=== PATIENT | female | born 1995 | race Caucasian/White ===

== ENCOUNTER 2020-10-18 07:15 | Outpatient (CLI) | payer OTHER, MEDICAID, BC, SELFPAY ==
--- NOTE | 2020-10-18 07:32 | US_ITS ---
WS: [id number] OBSTETRICAL ULTRASOUND COMPLETE HISTORY: SUPERVISION NORMAL COMPARISON: None available. Single intrauterine gestation in breech presentation. Cervix is Closed and normal length. Cervical length is 4.2 cm. Normal amount of amniotic fluid surrounds the fetus. Placenta: Posterior, no previa or abruption. Placenta grade 1 Heart: 141 BPM. Limited evaluation of the cardiac structures. No good four-chamber heart is been obta ined. The outflow tracts are limited. The axis does appear normal. Anatomy: Intracranial structures and spine are normal. kidneys, stomach and urinary bladd er are unremarkable. There is a tubular structure within the abdomen which may be small bowel. No Dop pler was placed on this area. Abnormal cord insertion site. There is dilatation of the umbilical cord at the insertion site and possible varix. Three-vessel cord is present. 4 extremities are present. profile: Unremarkable. Gender: Male. measurements: BPD = 5.3 cm = 22w0d HC = 19.8 cm = 22w0d AC = 17.2 cm = 22w1d FL = 3.9 cm = 22w4d EFW: 492 g. Biometry is internally concordant. AGA by ultrasound: 22w1d TACHO by ultrasound: 02/20/2021 US/US OB >= 14 weeks fetus [id number] IMPRESSION: 1. Single intrauterine gestation of 22w1d with an TACHO of 02/20/2021. 2. Inadequate evaluation of the heart. There is also an abnormal insert ion site of the umbilical cord. Recommend follow-up with maternal- medicin e for further evaluation of anatomy. Remaining anatomy is negative. Notified Toni Carmen MD at 10/19/2020 8:47 AM.
== END 2020-10-18 07:16 | disposition home or self-care (01) ==
LOC: RAD 07:29
PROVIDERS: PCP Family Medicine; Visit Provider Family Medicine
DX: Z34.92 Encounter for supervision of normal pregnancy, unspecified, second trimester (principal); Z3A.22 22 weeks gestation of pregnancy
CPT/HCPCS: 76805

== ENCOUNTER 2021-01-08 13:53 | Outpatient (CLI) | payer OTHER, BC, SELFPAY ==
--- NOTE | 2021-01-08 14:06 | US_ITS ---
WS: [id number] BIOPHYSICAL PROFILE AMNIOTIC FLUID INDEX HISTORY: GESTATIONAL HYPERTENSION-BOB/BPP COMPARISON: None available. Cardiac activity: 133 bpm. Cervix: closed. Position: Cephalic. Placenta: Posterior, no previa or abruption. Placenta grade: 2 Parameters are as follows: Breathin Movement: 2 Tone: 2 Fluid volume: 2 Amniotic fluid index 16.3 cm. US/US OB BPP wo NST [id number] IMPRESSION: 1. Biophysical profile score: 8/8. 2. Normal amniotic fluid index.
[2021-01-08 14:48] VITALS: RESP 16
[2021-01-08 14:49] VITALS: BP 140/81; PULSE 78
[2021-01-08 14:50] VITALS: TEMP 36.4
[2021-01-08 15:09] VITALS: BP 135/78; PULSE 75
[2021-01-09 05:20] VITALS: TEMP 36.4
[2021-01-09 05:21] VITALS: BP 134/68; PULSE 54
[2021-01-09 06:01] VITALS: BP 118/78; PULSE 53
--- NOTE | 2021-01-09 08:11 | PC.NURSE ---
This account contains the monitor recording of a different Pt. ([id number]). This account was not displayed through [employer] when a different pt was assign to a room, this resulted in the monitor strip being recorded to this account
== END 2021-01-08 20:12 | disposition home or self-care (01) ==
LOC: RAD 13:59 → OBGYN 14:47
PROVIDERS: PCP Family Medicine; Visit Provider Family Medicine
DX: O13.9 Gestational [pregnancy-induced] hypertension without significant proteinuria, unspecified trimester (principal)
CPT/HCPCS: 76819

== ENCOUNTER 2021-01-08 14:44 | Outpatient (CLI) | payer OTHER, BC, SELFPAY ==
[2021-01-08 14:55] VITALS: BMI 36.0
== END 2021-01-08 15:19 | disposition home or self-care (01) ==
LOC: OPOB 14:45
PROVIDERS: PCP Family Medicine; Visit Provider Family Medicine
DX: O16.9 Unspecified maternal hypertension, unspecified trimester (principal); Z3A.00 Weeks of gestation of pregnancy not specified
CPT/HCPCS: 59025

== ENCOUNTER 2021-01-11 07:50 | Outpatient (CLI) | payer OTHER, BC, SELFPAY ==
[2021-01-11 08:04] VITALS: BP 127/79; PULSE 85
[2021-01-11 08:24] VITALS: BP 128/61; PULSE 96
== END 2021-01-11 08:44 | disposition home or self-care (01) ==
LOC: OPOB 07:56 → OBGYN 07:58
PROVIDERS: PCP Family Medicine; Visit Provider Family Medicine
DX: O16.9 Unspecified maternal hypertension, unspecified trimester (principal); Z3A.00 Weeks of gestation of pregnancy not specified
CPT/HCPCS: 59025

== ENCOUNTER 2021-01-14 11:53 | Outpatient (CLI) | payer OTHER, MEDICAID, BC, SELFPAY ==
--- NOTE | 2021-01-14 12:08 | US_ITS ---
WS: [id number] ULTRASOUND OB LIMITED TECHNIQUE: Limited ultrasound examination of the fetus. CLINICAL INFORMATION: GESTATIONAL HYPERTENSION COMPARISON: Ultrasound January 08, 2021 FINDINGS: Cervix measures 5.7 cm. Cervix is long and closed. Ultrasound gestational age 35 weeks 5 days Estimated delivery February 13, 2021 Estimated weight 5 lbs. 15oz. Single interuterine gestation. Placental location is posterior. Placenta grade: 2 heart rate 131 BPM. Normal BOB. BOB 21.45 cm Biophysical profile 8 out of 8. breathin movement: 2 tone: 2 Amniotic fluid: 2 IMPRESSION Normal biophysical profile 8 out of 8
== END 2021-01-14 11:54 | disposition home or self-care (01) ==
LOC: RAD 11:58
PROVIDERS: PCP Family Medicine; Visit Provider Family Medicine
DX: O13.9 Gestational [pregnancy-induced] hypertension without significant proteinuria, unspecified trimester (principal)
CPT/HCPCS: 76816; 76819

== ENCOUNTER 2021-01-14 13:00 | Outpatient (CLI) | payer OTHER, MEDICAID, BC, SELFPAY ==
[2021-01-14 13:00] VITALS: BMI 36.3
[2021-01-14 13:08] VITALS: BP 137/77; PULSE 91; RESP 18; TEMP 36.4
[2021-01-14 13:14] VITALS: RESP 18
[2021-01-14 13:28] VITALS: BP 131/81; PULSE 98
== END 2021-01-14 13:48 | disposition home or self-care (01) ==
LOC: OPOB 13:03 → OBGYN 13:04
PROVIDERS: PCP Family Medicine; Visit Provider Family Medicine
DX: O16.9 Unspecified maternal hypertension, unspecified trimester (principal); Z3A.00 Weeks of gestation of pregnancy not specified
CPT/HCPCS: 59025

== ENCOUNTER 2021-01-17 11:12 | Outpatient (CLI) | payer OTHER, BC, MEDICAID, SELFPAY ==
[2021-01-17 11:19] VITALS: BP 146/80; PULSE 73
[2021-01-17 11:20] VITALS: TEMP 36.1
[2021-01-17 11:28] VITALS: BP 150/107; PULSE 88
[2021-01-17 11:36] VITALS: BMI 36.0
[2021-01-17 11:40] VITALS: BP 144/100; PULSE 90
[2021-01-17 11:56] VITALS: BP 125/76; PULSE 85
== END 2021-01-17 12:15 | disposition home or self-care (01) ==
LOC: OPOB 11:14 → OBGYN 11:16
PROVIDERS: PCP Family Medicine; Visit Provider Family Medicine
DX: O16.9 Unspecified maternal hypertension, unspecified trimester (principal); Z3A.00 Weeks of gestation of pregnancy not specified
CPT/HCPCS: 59025; 99211

== ENCOUNTER 2021-01-21 08:36 | Outpatient (CLI) | payer OTHER, BC, MEDICAID, SELFPAY ==
--- NOTE | 2021-01-21 08:41 | US_ITS ---
WS: [id number] BIOPHYSICAL PROFILE AMNIOTIC FLUID HISTORY: GESTATIONAL DIABETES COMPARISON: 01/14/2021 Cardiac activity: 120 bpm. Cervix: Not visualized. Placenta: Posterior, no previa or abruption. Placenta grade: 2 Parameters are as follows: Breathin Movement: 2 Tone: 2 Fluid volume: 2 Amniotic fluid index: 16.6 cm near the 50th percentile. Largest vertical pocket of amniotic fluid 5 c m. US/US OB F/U w BPP wo NST IMPRESSION: 1. Biophysical profile score: 8/8. 2. Normal amniotic fluid index.
== END 2021-01-21 08:37 | disposition home or self-care (01) ==
LOC: RAD 08:37
PROVIDERS: PCP Family Medicine; Visit Provider Family Medicine
DX: O24.419 Gestational diabetes mellitus in pregnancy, unspecified control (principal)
CPT/HCPCS: 76816; 76819

== ENCOUNTER 2021-01-21 09:14 | Outpatient (CLI) | payer OTHER, BC, MEDICAID, SELFPAY ==
[2021-01-21 09:20] VITALS: BP 126/77; PULSE 91
[2021-01-21 09:30] VITALS: RESP 17
[2021-01-21 09:35] VITALS: BP 116/67; PULSE 101
[2021-01-21 09:38] VITALS: BMI 35.6
== END 2021-01-21 09:55 | disposition home or self-care (01) ==
LOC: OPOB 09:15 → OBGYN 09:16
PROVIDERS: PCP Family Medicine; Visit Provider Family Medicine
DX: O16.9 Unspecified maternal hypertension, unspecified trimester (principal); Z3A.00 Weeks of gestation of pregnancy not specified
CPT/HCPCS: 59025

== ENCOUNTER 2021-01-24 12:15 | Outpatient (CLI) | payer OTHER, BC, MEDICAID, SELFPAY ==
[2021-01-24 12:39] VITALS: BP 137/79; PULSE 86
[2021-01-24 12:40] VITALS: TEMP 36.2
[2021-01-24 12:47] VITALS: BMI 36.0
[2021-01-24 12:54] VITALS: BP 137/82; PULSE 72
--- NOTE | 2021-01-24 12:55 | PC.NURSE ---
Call to Dr. Carmen to report pt here for NST for PIH and Pre-eclampsia. Reported reactive NST and reported VS. Received orders to D/C pt home; have pt stop by the office to shedule an appointment for Thursday to discuss induction of labor.
[2021-01-24 13:12] VITALS: BP 137/82; PULSE 72
[2021-01-25 15:05] LABS: Coronavirus Test Green County Detected
== END 2021-01-24 13:05 | disposition home or self-care (01) ==
LOC: OPOB 12:26 → OBGYN 12:27
PROVIDERS: PCP Family Medicine; Visit Provider Family Medicine
DX: O26.899 Other specified pregnancy related conditions, unspecified trimester (principal); Z3A.00 Weeks of gestation of pregnancy not specified
CPT/HCPCS: 59025; 87635

== ENCOUNTER 2021-01-29 19:49 | Inpatient (IN) | payer OTHER, BC, MEDICAID, SELFPAY ==
[2021-01-29] VITALS (40 sets, daily range): BP systolic 130–150; BP diastolic 69–88; PULSE 77–101; RESP 15–16; O2SAT 93–100; BMI 36.3
[2021-01-29 20:03] LABS: Basophils % 0.3 %; Eosinophils % 0.3 %; Hematocrit 33.7 % (37.0-47.0); Lymphocytes # 2.3 10^3/uL (0.8-4.8); Lymphocytes % 20.5 %; Mean Corpuscular HGB Conc 32.6 g/dL (30.0-36.0); Mean Corpuscular Volume 82.6 fL (81-99); Mean Platelet Volume 11.2 fL (7.4-10.4); Monocytes # 0.7 10^3/uL (0.2-0.9); Neutrophils % 72.4 %; Nucleated Red Blood Cells % 0 %; Platelet Count 234 10^3/cmm (130-400); Red Blood Count 4.08 10^6/uL (4.1-5.3); Red Cell Distribution Width 12.4 % (12.1-15.1)
[2021-01-29] MEDS: labetalol 200 mg Tablet PO (20:19)
[2021-01-29 20:24] LABS: Add Urine Microscopic? YES; Bacteria Urine 3+ /hpf; Bilirubin Urine 1+ (Negative); Blood Urine Trace (Negative); Glucose Urine UA Norm (Normal); Ketones Urine 1+ (Negative); Leukocyte Esterase Urine 1+ (Negative); Nitrate Urine Negative (Negative); Protein Urine Neg (Negative); RBC Urine 0-4 /hpf (0-2); Squamous Epithelial Cell Urine 55-80 /hpf (0-5); Urine Appearance Cloudy (CLEAR); Urine Color Yellow (Yellow); Urobilinogen Urine 1 mg/dL (Negative); WBC Urine 25-40 /hpf (0-5); pH Urine 5 (5-7)
[2021-01-29 20:30] LABS: Alanine Aminotransferase 17 U/L (0-33); Albumin Level 3.6 g/dL (3.5-5.2); Alkaline Phosphatase 154 IU/L (35-105); Anion Gap 15.7 (5-19); Aspartate Amino Transferase 17 U/L (0-32); Blood Urea Nitrogen 8 mg/dL (6-20); Calcium 8.4 mg/dL (8.5-10.5); Carbon Dioxide 21 mmol/L (22-29); Chloride 103 mmol/L (98-107); Globulin 2.9 g/dL (1.3-4.6); Glomerular Filtration Rate 152.9 mL/min (90-130); Glucose 110 mg/dL (65-115); Osmolality Calculated 281 mOsm/kg (285-295); Potassium 3.7 mmol/L (3.5-5.1); Sodium 136 mmol/L (136-145); Total Bilirubin 0.4 mg/dL (0.15-1.2); Total Protein 6.5 g/dL (6.6-8.7); Uric Acid 5.8 mg/dL (2.4-5.7)
[2021-01-29] MEDS: miSOPROStol 100 mcg tablet 25 MCG VAGINAL (20:34)
[2021-01-29 20:36] LABS: Urine Creatinine 216 mg/dL (28-217)
[2021-01-29 20:44] LABS: Urine Protein Random 22 mg/dL
[2021-01-29] MEDS: lactated ringers 1,000 ML 999 ML IV (21:19)
--- NOTE | 2021-01-29 21:59 | PC.NURSE ---
Fluid bolus complete and O2 removed.
--- NOTE | 2021-01-29 22:34 | PC.NURSE ---
Dr. Carmen called unit, states that he has been reviewing the FHTs, MD orders not to give anymore Cytotec and to start pitocin at the 4 hour georgette, Pitocin to start at 2mu/min and increase by 2mu every 30 minutes, MD does not need to be called prior to Pitocin being started.
[2021-01-30] VITALS (73 sets, daily range): BP systolic 125–191; BP diastolic 60–97; PULSE 65–99; TEMP 36.1–36.7; O2SAT 94–98
[2021-01-30] MEDS: dextrose 5%-lactated ringers 1,000 ML 125 ML IV ×3 (00:50→19:42)
[2021-01-30] MEDS: oxytocin 30 UNIT/500 ML BAG IV (00:51)
--- NOTE | 2021-01-30 01:32 | PC.NURSE ---
Patients mother is support system.
--- NOTE | 2021-01-30 01:55 | PC.NURSE ---
2327 - This RN with under radiant warmer in room. DeLee suctioning was performed with a return of 18ml of clear fluid 2329 - Dr. Yeh and RN at warmer with 2333 - MD orders for blow by to be started 2333 - Cpap initiated 2343 - Respiratory called o set up CPAP in nursery and MD orders for to be transferred to nursery 2351 -Infant in nursery under radiant warmer, RN and Respiratory at bedside. CPAP placed with PEEP of 4 and FiO2 of 60% 2355 - FiO2 down to 55%, O2 saturation of 99% 235 - O2 saturation 100, FiO2 down to 50% 0001 - O2 saturation 98%, FiO2 down to 45% 0006 - O2 saturation 99%, FiO2 down to 40% 0008 - O2 Saturation 98%, FiO2 down to 35% 0020 - XRay at bedside. 0022 - Report given to Elgin Pink RN. Care relinquished at this time.
[2021-01-30] MEDS: alum-mag-hydroxide-sime 30 mL UDC PO (04:03)
--- NOTE | 2021-01-30 06:41 | PC.NURSE ---
patient states that she would like to sleep so bedside report is not needed this morning.
--- NOTE | 2021-01-30 08:31 | PM.HP ---
Providers/Chief Complaint Admitting Physician: Toni Carmen MD Primary Care Provider: Toni Carmen MD Chief Complaint: INDUCTION History of Present Illness Michelle Foreman is a 25 year old G2, P0 at 37.1 weeks gestation by LMP consistent with 8-week ultrasound. Her is complicated by smoking for trimester quit at 10 weeks, THC in early now quit, transfer of care at 21 weeks gestation after removing, low measles titer, gestational hypertension starting at 30 weeks on labetalol 200 mg twice daily, preeclampsia without severe features at 36 weeks gestation. The patient presented to labor and delivery on 01/29/2021 for induction of labor secondary to preeclampsia without severe features. The patient had a 24-hour urine protein of 299 at 36 weeks gestation. Her 24 urine protein had been gradually trending upwards over the last month. Because of having preeclampsia but without severe features we waited for delivery until 37 weeks gestation. Currently the patient denies any headaches, flashes of light, nausea, vomiting, chest pains, shortness of breath, vomiting, diarrhea, dysuria, leakage of fluid, vaginal bleeding. The patient did have a headache with nasal congestion and body aches starting on 01/15/2021. She had a Covid swab that was positive on 01/24/2021. She no longer has any symptoms of this. It is felt that she is past the 14 days quarantine. Medications/Allergies Home Medications Medication Instructions Recorded Confirmed Last Taken Type cimetidine 400 mg PO BID 01/11/21 01/24/21 01/24/21 06:30 History labetalol 200 mg PO BID 01/11/21 01/24/21 01/24/21 06:30 History [id number] 1 tab PO DAILY 01/11/21 01/24/21 01/24/21 06:30 History [] Allergies Allergy/AdvReac Type Severity Reaction Status Date / Time No Known Allergies Allergy Verified 01/24/21 13:10 PFSH Acute PFSH: Surgical History (Updated 01/30/21 @ 08:36 by Toni Carmen MD) H/O hand surgery Social History (Updated 01/30/21 @ 08:37 by Toni Carmen MD) Smoking and tobacco status: former smoker Quit status (tobacco): has quit using tobacco Alcohol intake: never Substance/Drug Use: former Date of last use: Quit during early using THC Female Reproductive History: : 2 Vitals/I&O/Wt Last Vital Signs Pulse 75 01/30/21 08:24 Resp 16 01/29/21 20:17 BP 130/73 01/30/21 08:24 Pulse Ox 98 01/30/21 00:46 01/29/21 01/30/21 01/30/21 22:59 06:59 14:59 Intake Total 1000 / 1000 26.499 / 1026.499 Balance 1000 / 1000 26.499 / 1026.499 Weight last 48 hrs Weight 232 lb Physical Exam Narrative: EXAM NARRATIVE: General: Alert and oriented x3 Eyes: Pupils equal round and reactive to light and accommodation Mouth: Mucous membranes moist, pharynx non-erythematous Cardiac: Regular rate and rhythm without murmurs Lungs: Clear to auscultation bilaterally without wheezes, crackles or rhonchi Abdomen: Soft, non-tender, fundus consistent with gestational age Extremities: Trace edema in the bilateral lower extremities. Brisk reflexes in the bilateral deep tendon reflexes of the knee Data : 01/29/21 19:11 01/29/21 19:11 A&P Additional A&P Information The patient was given 1 dose of Cytotec overnight for induction of labor. The patient had a few repetitive late decelerations that resolved with repositioning and an IV fluid bolus. After the Cytotec wore off, it was felt best to not place another dose. For this reason Pitocin was started and the patient is currently pamela every 2 to 3 minutes with 6 units of IV Pitocin. Her cervical exam is 1.5 to 2 cm/50%/-3. Blood pressures have been in the 120s to 150s. There was one in the 160s overnight that self resolved. The patient has been taking labetalol 200 mg twice a day for what was previously gestational hypertension. She was given 1 dose overnight and if her blood pressures are starting to climb again, we will need to give another dose by mouth to help keep her blood pressures under control. We will plan on starting IV magnesium once the patient is in active labor. She will need to be on IV magnesium for 24 hours after delivery as well. All questions were answered. The patient and her mother are in agreement with the current plan of care. Attestations Medical Necessity Statement*: The patient will be here for greater than 2 midnights due to treatment of preeclampsia and routine intrapartum and management of labor and delivery Coding Level of Care Code Acute Brand Sales Manager for [employer] Tushar
--- NOTE | 2021-01-30 15:59 | PM.MISC ---
Miscellaneous Note Note: The patient is doing well at this time and blood pressures have been well controlled. She is pamela every 2 to 3 minutes however not making significant change. She is still 1 to 2 cm with 50% effacement and -3 station. For this reason the IV Pitocin was stopped and the patient was allowed to eat. A Dobbs bulb was placed to help with manual dilation. The patient did not have any complications and tolerated this well. Once this is out, we will plan for starting Pitocin back again. The patient is feeling well. The patient is in agreement with the current plan of care.
--- NOTE | 2021-01-30 16:06 | PC.NURSE ---
1554 Cook's cervical ripening balloon successfully placed by Dr Carmen with 60ml of sterile water placed in each balloon by Ivan Cash RN.
[2021-01-31] VITALS (170 sets, daily range): BP systolic 121–187; BP diastolic 62–122; PULSE 63–108; TEMP 36.3–36.7; O2SAT 96–100
[2021-01-31] MEDS: dextrose 5%-lactated ringers 1,000 ML 125 ML IV ×2 (03:25→16:40)
[2021-01-31] MEDS: alum-mag-hydroxide-sime 30 mL UDC PO ×2 (04:01→11:33)
--- NOTE | 2021-01-31 07:56 | PM.PN ---
Subjective Subjective: Interval history: The patient is feeling well at this time. She is feeling the contractions but they are not too painful yet. She denies any headaches and nausea. She has had some intermittent late decelerations that were improved with a fluid bolus, position change and decreasing Pitocin from 18 to 9. Vitals/I&O/Wt Last Vital Signs Temp 97.9 F 01/31/21 02:00 Pulse 82 01/31/21 07:45 Resp 16 01/29/21 20:17 BP 128/74 01/31/21 07:45 Pulse Ox 98 01/31/21 07:15 01/30/21 01/31/21 01/31/21 22:59 06:59 14:59 Intake Total 1027.333 / 2090.199 1091.150 / 3181.349 Balance 1027.333 / 2090.199 1091.150 / 3181.349 Weight last 48 hrs Weight 232 lb Physical Exam Narrative: EXAM NARRATIVE: General: Alert and oriented x3 Cardiac: Regular rate and rhythm without murmurs Lungs: Clear to auscultation bilaterally without wheezes, crackles or rhonchi Abdomen: Soft, non-tender, fundus consistent with gestational age Extremities: Trace edema in the bilateral lower extremities. Brisk reflexes in the bilateral deep tendon reflexes of the knee Data : 01/29/21 19:11 01/29/21 19:11 A&P Additional A&P Information The patient has made slow change and is currently 5 to 6 cm dilated. She is about 50% effaced. The head was well applied. Because her progress is slow, we discussed AROM and the patient was in favor of this. AROM was carried out approximately 15 minutes ago with clear fluid. No prolapsed cord was noted afterwards. heart tones are currently in the mid one forties with moderate variability and good accelerations. Category 1 tracing. The patient is pamela every 3 to 5 minutes. She is currently on 9 units of Pitocin. We will continue with labor process and watch for signs of complications due to preeclampsia. Currently her blood pressures are all out of the severe range. All questions were answered. The patient is in agreement with the current plan of care. Attestations Medical Necessity Statement*: The patient continues need inpatient care as we continue the process of induction of labor. Her stay will continue to cross 2 midnights. Coding Level of Care Code Acute Mechanical Design Technician for Jeffry Finley
--- NOTE | 2021-01-31 08:54 | PC.NURSE ---
Pt reports increased pain and requesting epidural.
[2021-01-31] MEDS: lactated ringers 1,000 ML 999 ML IV ×2 (08:57→10:12)
--- NOTE | 2021-01-31 10:25 | P.ANESASSM_ITS ---
Pre-Anesthetic Assessment Pre-Anesthetic Assessment: Height/Weight: Height 1.7 m Weight 105.233 kg Temp Pulse Resp BP Pulse Ox 98.1 F 71 16 162/101 98 01/31/21 09:01 01/31/21 10:21 01/29/21 20:17 01/31/21 10:21 01/31/21 10:04 Was Beta Kellie taken within 24 hours: N/A Was Clonidine taken within 24 hours: N/A Social: Social History: No alcohol and No tobacco Exam: Pre-Anes Outpt Exam: alert, oriented x 3, clear to auscultation bilaterally and regular rate & rhythm Airway: Submandibular: WNL Cervical ROM: WNL MP: 2 Dentition: Full Metabolic: Metabolic: Morbid obesity Anesthetic Plan: ASA status: 2 Anesthesia: Regional (specify below) (Labor epidural) Risk of > 500 ml blood loss (7ml/kg in children): No Meds/Allergies Current Medications: Current Medications Generic Name Dose Route Start Last Admin Trade Name Freq PRN Reason Stop Dose Admin Al Hydrox/Mg [place] x/Simethicone 30 ml 01/29/21 19:48 01/31/21 04:01 Jejk-Sis-Pcjanft de-Jarret 30 Ml Udc PO 30 ml Q4H PRN Administration INDIGESTION Lactated Ringer's 1,000 mls @ 999 m ls/hr 01/29/21 19:48 01/31/21 08:57 Lactated Ringers IV 999 mls/hr .Q1H1M PRN Administration See label comment s Dextrose/Lactated Ringer's 1,000 mls @ 125 m ls/hr 01/29/21 19:48 01/31/21 03:25 Dextrose 5%-Lact ated Ringers IV 125 mls/hr .Q8H PRN Administration LABOR INDUCTION Lactated Ringer's 1,000 mls @ 999 m ls/hr 01/29/21 19:48 01/31/21 10:12 Lactated Ringers IV 999 mls/hr .Q1H1M PRN Administration Per L&D Rescitati on Protocol Oxytocin 30 unit in 500 ml s @ 2 mls/hr 01/30/21 00:40 01/31/21 06:26 Pitocin IV 9 milliunit/min .Q24H PRN 9 mls/hr LABOR INDUCTION Titration Protocol 2 MILLIUNIT/MIN Labetalol HCl 200 mg 01/29/21 20:00 01/29/21 20:19 Labetalol 200 Mg Tablet PO 200 mg ONCE MYRTLE Administration PFSH Anesthesia PFSH: Surgical History (Updated 01/30/21 @ 08:36 by Toni Carmen MD) H/O hand surgery Social History (Updated 01/30/21 @ 08:37 by Toni Carmen MD) Smoking and tobacco status: former smoker Quit status (tobacco): has quit using tobacco Alcohol intake: never Substance/Drug Use: former Date of last use: Quit during early using THC Female Reproductive History: : 2 Data Anesthesia CBC & Chem 7: 01/29/21 19:11 01/29/21 19:11 Other Labs: Laboratory Results - last 48 hr 01/29/21 01/29/21 01/29/21 19:11 19:11 20:08 WBC 11.0 H RBC 4.08 L Hgb 11.0 L Hct 33.7 L MCV 82.6 MCH 27.0 L MCHC 32.6 RDW 12.4 Plt Count 234 MPV 11.2 H Neut % (Auto) 72.4 Lymph % (Auto) 20.5 [place] % (Auto) 6.0 Eos % (Auto) 0.3 Baso % (Auto) 0.3 Neut # (Auto) 8.00 H Lymph # (Auto) 2.3 [place] # (Auto) 0.7 Eos # (Auto) 0.0 Baso # (Auto) 0.0 Nucleated RBC % (auto) 0 Nucleated RBCs # 0.0 Sodium 136 Potassium 3.7 Chloride 103 Carbon Dioxide 21 L Anion Gap 15.7 BUN 8 Creatinine 0.5 GFR Calculation 152.9 H Glucose 110 Calculated Osmolality 281 L Uric Acid 5.8 H Calcium 8.4 L Total Bilirubin 0.4 AST 17 ALT 17 Alkaline Phosphatase 154 H Total Protein 6.5 L Albumin 3.6 Globulin 2.9 Urine Color Yellow Urine Appearance Cloudy Urine pH 5 Ur Specific [place] 1.020 Urine Protein Neg Urine Glucose (UA) Norm Urine Ketones 1+ H Urine Blood Trace H Urine Nitrate Negative Urine Bilirubin 1+ H Urine Urobilinogen 1 H Ur Leukocyte Esterase 1+ H Urine RBC 0-4 H Urine WBC 25-40 H Ur Squamous Epith Cells 55-80 H Amorphous Sediment Not Reportable Urine Bacteria 3+ H U Random Total Protein Urine Creatinine Protein/Creatinin Ratio 01/29/21 20:08 WBC RBC Hgb Hct MCV MCH MCHC RDW Plt Count MPV Neut % (Auto) Lymph % (Auto) [place] % (Auto) Eos % (Auto) Baso % (Auto) Neut # (Auto) Lymph # (Auto) [place] # (Auto) Eos # (Auto) Baso # (Auto) Nucleated RBC % (auto) Nucleated RBCs # Sodium Potassium Chloride Carbon Dioxide Anion Gap BUN Creatinine GFR Calculation Glucose Calculated Osmolality Uric Acid Calcium Total Bilirubin AST ALT Alkaline Phosphatase Total Protein Albumin Globulin Urine Color Urine Appearance Urine pH Ur Specific [place] Urine Protein Urine Glucose (UA) Urine Ketones Urine Blood Urine Nitrate Urine Bilirubin Urine Urobilinogen Ur Leukocyte Esterase Urine RBC Urine WBC Ur Squamous Epith Cells Amorphous Sediment Urine Bacteria U Random Total Protein 22 Urine Creatinine 216 Protein/Creatinin Ratio 0.10 Cardiac Studies: No Data to Display
--- NOTE | 2021-01-31 10:26 | ANES.PROC ---
Anesthesia Procedures Procedure/Date: 01/31/21 Epidural: Time Out Performed: Yes Consents Signed: Procedure Consent Consent: requested by attending/covering physician, from patient, risks and benefits reviewed and patient agrees to proceed Lumbar Level: L2-L3 Epidural position: sitting Epidural procedure: sterile prep of area, 1% lidocaine to numb the area, 18 g needle, neg for paresthesia, test dose given, 1.5% xylocaine 1:200k epi, placed PCEA, no systemic response, sterile dressing applied, L.U.D. no apparent complications and 0.2% Ropiavacaine @ mls/hr (13) Additional Comments: ROB at 6cm, cath at 11cm. Bolused 5mls 2% PF lido
[2021-01-31] MEDS: labetalol 5 mg/mL SDV 20mL 20 MG IVP (10:27)
[2021-01-31] MEDS: labetalol 5 mg/mL SDV 20mL 40 MG IVP (10:42)
[2021-01-31] MEDS: magnesium sulfate premix 4 GM/100 ML PREMIX IV (11:08)
[2021-01-31] MEDS: labetalol 5 mg/mL SDV 20mL 80 MG IVP ×2 (11:32→12:04)
[2021-01-31] MEDS: magnesium sulfate premix 20 GM/500 ML BAG IV ×2 (11:42→21:12)
[2021-01-31] MEDS: ondansetron 2 mg/ML SDV 2 mL 4 MG IVP (12:09)
[2021-01-31] MEDS: labetalol 200 mg Tablet PO (12:15)
[2021-01-31 13:20] LABS: Magnesium Level (OB Only) 3.7 mg/dL (5.0-7.5)
[2021-01-31] MEDS: acetaminophen 325 mg Tablet 650 MG PO (16:18)
[2021-01-31] MEDS: oxytocin 30 UNIT/500 ML BAG 600 UNIT IV (18:07)
--- NOTE | 2021-01-31 18:15 | PM.DELIVERY ---
Delivery Note: Date of delivery: January 31, 2021 Pre-delivery diagnoses: 1. Intrauterine at 37.2 weeks gestation 2. Preeclampsia with severe features 3. Transfer of care at 21 weeks gestation 4. Low measles titer 5. Smoking during first trimester quit at 10 weeks 6. THC use in early and now quit Post-delivery diagnoses: 1. Intrauterine status post spontaneous vaginal delivery at 37.2 weeks gestation 2. Preeclampsia with severe features on magnesium 3. Transfer of care at 21 weeks gestation 4. Low measles titer 5. Smoking during first trimester quit at 10 weeks 6. THC use in early and now quit 7. Delivery of healthy infant male weighing 7 pounds 8 ounces with Apgars of 7 and 9 Procedure: Spontaneous vaginal delivery Delivering Physician: Toni Carmen MD Estimated blood loss (mL): 100 Findings: 1. Intact placenta with central umbilical insertion site 2. Delivery of healthy infant male weighing 7 pounds 8 ounces with Apgars of 7 and 9 Michelle Foreman is a 25 year old G2 now P1 status post spontaneous vaginal delivery at 37.1 weeks gestation by LMP consistent with 8-week ultrasound. Her is complicated by smoking for trimester quit at 10 weeks, THC in early now quit, transfer of care at 21 weeks gestation after removing, low measles titer, gestational hypertension starting at 30 weeks on labetalol 200 mg twice daily, preeclampsia without severe features at 36 weeks gestation and now with severe preeclampsia. Pre-Delivery Course: The patient presented to labor and delivery for induction of labor secondary to preeclampsia. She was 1 cm dilated upon presentation and was given Cytotec x1. The patient had some intermittent late decelerations secondary to this. They resolved with fluid boluses and repositioning, however I felt that it was unsafe to give further doses. She did not make significant change. She was started on IV Pitocin. She only changed to 1.5 cm dilation. Because of this a Dobbs bulb was placed and it came out after a few hours. At that time she was 4 cm dilated. The patient was restarted on IV Pitocin and made slow change. By the morning of 01/31/2021, the head was applied to the cervix and AROM was performed at 7:49 AM on 01/31/2021 to augment labor. She was 5 cm at that time. The patient was started on IV magnesium and given an laboring epidural. The patient then began to make slow but gradual change. At 1711 the patient had a small anterior lip and she was able to push past it. She was considered complete at 1712 on 01/31/2021. Delivery: The patient began pushing at 1711 on 01/31/2021. The patient pushed very well and after 3 contractions of pushing the 's head delivered in the OA position at 1722 on 01/31/2021. The left shoulder was the anterior shoulder and it delivered with ease. Rest the infant delivered without complication. The 's mouth and nose were bulb suctioned by myself. The was placed on the mother's chest where the nurses were waiting to care for him. The cord was clamped by myself after approximately 1 minute and cut by the mother. The cord blood was then obtained. The cord was then drained of blood. Traction was placed on the umbilical cord and the uterus was massaged. The placenta delivered at 1742 without complication. The placenta was noted to be intact with a central umbilical cord insertion site. The cervix was inspected and no lacerations were noted. Vaginal wall was inspected and a second-degree midline perineal laceration was noted. This did not extend to the rectum. Adequate anesthesia was noted due to the epidural. 3-0 Vicryl was used to repair the laceration. A rectal exam was done and no sutures were noted in the rectal vault. Currently both the mother and infant are doing well. Coding Level of Care Code Acute Heating And Cooling Technician for Jeffry Finley
[2021-01-31 19:58] LABS: Magnesium Level (OB Only) 4.9 mg/dL (5.0-7.5)
[2021-01-31] MEDS: ibuprofen 800 mg tablet PO (21:12)
[2021-02-01] VITALS (35 sets, daily range): BP systolic 108–162; BP diastolic 56–107; PULSE 74–93; RESP 16–18; TEMP 36.7; O2SAT 97
[2021-02-01 01:35] LABS: Magnesium Level (OB Only) 5.5 mg/dL (5.0-7.5)
[2021-02-01] MEDS: alum-mag-hydroxide-sime 30 mL UDC PO (02:57)
[2021-02-01] MEDS: acetaminophen 325 mg Tablet 650 MG PO (03:35)
[2021-02-01 07:19] LABS: Magnesium Level (OB Only) 6.1 mg/dL (5.0-7.5)
[2021-02-01] MEDS: magnesium sulfate premix 20 GM/500 ML BAG IV (07:32)
[2021-02-01] MEDS: ibuprofen 800 mg tablet PO ×3 (08:32→21:03)
[2021-02-01] MEDS: dextrose 5%-lactated ringers 1,000 ML 75 ML IV (08:32)
[2021-02-01] MEDS: docusate sodium 100 mg Capsule PO ×2 (08:32→17:57)
[2021-02-01] MEDS: prenatal vitamin Capsule 1 CAP PO (08:32)
[2021-02-01] MEDS: labetalol 200 mg Tablet PO ×3 (09:02→17:57)
--- NOTE | 2021-02-01 15:10 | P.PN_ITS ---
Subjective Subjective: Interval history: Patient is feeling well today. She does feel tired and groggy with a headache that is likely related to the magnesium. Otherwise her pain is well controlled. Her bleeding is decreasing well. She is breast-feeding well. Vitals/I&O/Wt Last Vital Signs Temp 97.4 F L 01/31/21 15:15 Pulse 82 02/01/21 14:05 Resp 16 01/29/21 20:17 BP 140/92 02/01/21 14:05 Pulse Ox 97 02/01/21 10:32 02/01/21 02/01/21 02/01/21 06:59 14:59 22:59 Intake Total 683.333 / 5045.683 1387.917 / 1387.917 Output Total 2430 / 3331 1999 Balance -1746.667 / 1714.683 -612.083 / -612.083 Physical Exam Narrative: EXAM NARRATIVE: General: Alert and oriented x3 Cardiac: Regular rate and rhythm without murmurs Lungs: Clear to auscultation bilaterally without wheezes, crackles or rhonchi Abdomen: Soft, minimal tenderness, fundus is firm and 1 cm below the umbilicus. Extremities: Trace edema in the bilateral lower extremities. Brisk reflexes in the bilateral deep tendon reflexes of the knees. Urinary Catheter Management^: Dobbs Latex Free: Cath Placed During This Visit: yes Reason for Continuing Indwelling Catheter: Accurate Measurement of Urinary Output in Critically Ill Patients Urinary Catheter Date of Insertion: 01/31/21 Urinary Catheter Time of Insertion: 18:15 Data : 01/29/21 19:11 01/29/21 19:11 A&P Additional A&P Information Overall patient is doing well. Her blood pressures are decreasing, however continue to be elevated. We will start her back on labetalol 200 mg by mouth twice a day. We will continue with this and will likely have to gradually wean it off as an outpatient. The patient continues to have brisk reflexes. We will need to watch closely for signs of preeclampsia persisting. She does have good urine output which indicates that her preeclampsia is improving. Will likely be able to stop the IV magnesium at 24 hours, however I did discuss with the p atient that she needs to have minimal activity overall as it may take a number of weeks for her to improve completely from preeclampsia. The patient expressed understanding. Currently her pain is well controlled. Her bleeding is decreasing well. We will plan to keep the patient at least until tomorrow evening and the on that we will decide based on her overall course. All questions were answered. The patient is in agreement with the current plan of care. Attestations Medical Necessity Statement*: The patient will be here for greater than 2 midnights due to treatment of preeclampsia and routine care. Coding Level of Care Code Acute Environmental Coordinator for Jeffry Finley
[2021-02-01 15:11] LABS: Hematocrit 26.8 % (37.0-47.0); Hemoglobin 8.7 g/dL (11.5-15.3); Mean Corpuscular HGB Conc 32.5 g/dL (30.0-36.0); Mean Corpuscular Hemoglobin 27.7 pg (28.0-34.0); Mean Corpuscular Volume 85.4 fL (81-99); Mean Platelet Volume 11.2 fL (7.4-10.4); Platelet Count 187 10^3/cmm (130-400); Red Blood Count 3.14 10^6/uL (4.1-5.3); Red Cell Distribution Width 13.2 % (12.1-15.1); White Blood Count 10.6 10^3/uL (4.0-10.0)
[2021-02-01 15:32] LABS: Magnesium Level (OB Only) 5.9 mg/dL (5.0-7.5)
--- NOTE | 2021-02-01 19:24 | PC.NURSE ---
Patient assisted to bathroom. Full linen change performed. Kelly care performed. Patient tolerated ambulating well. Patient assisted to chair and given call light and instructed to not get up without assistance.
[2021-02-01] MEDS: lanolin oint 7 gm 1 APPLIC TOPICAL (21:38)
[2021-02-01] MEDS: benzocaine-menthol 78 gm Canister 1 SPRAY TOPICAL (21:38)
[2021-02-02] VITALS (7 sets, daily range): BP systolic 124–146; BP diastolic 60–86; PULSE 75–80; RESP 16–18; TEMP 36.9; O2SAT 99
[2021-02-02] MEDS: labetalol 200 mg Tablet PO ×2 (10:00→17:02)
[2021-02-02] MEDS: docusate sodium 100 mg Capsule PO ×2 (10:00→17:02)
[2021-02-02] MEDS: ibuprofen 800 mg tablet PO ×2 (10:00→16:06)
[2021-02-02] MEDS: prenatal vitamin Capsule 1 CAP PO (10:00)
--- NOTE | 2021-02-02 11:36 | PM.DCS ---
Discharge Providers Date of Admission: 01/29/21 19:49 Date of Discharge: February 02, 2021 Attending Provider at Admission: Toni Carmen MD Attending Provider at Discharge: Toni Carmen MD Primary Care Provider: Toni Carmen MD Diagnoses at Discharge Other Information Additional DC diagnoses/information: 1. Intrauterine status post spontaneous vaginal delivery at 37.2 weeks gestation 2. Preeclampsia with severe features on magnesium 3. Transfer of care at 21 weeks gestation 4. Low measles titer 5. Smoking during first trimester quit at 10 weeks 6. THC use in early and now quit 7. Delivery of healthy male weighing 7 pounds 8 ounces with Apgars of 7 and 9 Reason for Visit Reason for Visit: INDUCTION Hospital Course Hospital Course Michelle Foreman is a 25 year old G2 now P1 status post spontaneous vaginal delivery at 37.1 weeks gestation by LMP consistent with 8-week ultrasound. Her is complicated by smoking for trimester quit at 10 weeks, THC in early now quit, transfer of care at 21 weeks gestation after removing, low measles titer, gestational hypertension starting at 30 weeks on labetalol 200 mg twice daily, preeclampsia without severe features at 36 weeks gestation and now with severe preeclampsia. Pre-Delivery Course: The patient presented to labor and delivery for induction of labor secondary to preeclampsia. She was 1 cm dilated upon presentation and was given Cytotec x1. The patient had some intermittent late decelerations secondary to this. They resolved with fluid boluses and repositioning, however I felt that it was unsafe to give further doses. She did not make significant change. She was started on IV Pitocin. She only changed to 1.5 cm dilation. Because of this a Dobbs bulb was placed and it came out after a few hours. At that time she was 4 cm dilated. The patient was restarted on IV Pitocin and made slow change. By the morning of 01/31/2021, the head was applied to the cervix and AROM was performed at 7:49 AM on 01/31/2021 to augment labor. She was 5 cm at that time. The patient was started on IV magnesium and given an laboring epidural. The patient then began to make slow but gradual change. At 1711 the patient had a small anterior lip and she was able to push past it. She was considered complete at 1712 on 01/31/2021. Delivery: The patient began pushing at 1711 on 01/31/2021. The patient pushed very well and after 3 contractions of pushing the 's head delivered in the OA position at 1722 on 01/31/2021. The left shoulder was the anterior shoulder and it delivered with ease. Rest the infant delivered without complication. The infant's mouth and nose were bulb suctioned by myself. The infant was placed on the mother's chest where the nurses were waiting to care for him. The cord was clamped by myself after approximately 1 minute and cut by the mother. The cord blood was then obtained. The cord was then drained of blood. Traction was placed on the umbilical cord and the uterus was massaged. The placenta delivered at 1742 without complication. The placenta was noted to be intact with a central umbilical cord insertion site. The cervix was inspected and no lacerations were noted. Vaginal wall was inspected and a second-degree midline perineal laceration was noted. This did not extend to the rectum. Adequate anesthesia was noted due to the epidural. 3-0 Vicryl was used to repair the laceration. A rectal exam was done and no sutures were noted in the rectal vault. : The patient was on IV magnesium for 24 hours . Her blood pressures were severe initially, however have improved. The patient was restarted on labetalol 200 mg twice daily by mouth and her blood pressures have been stable since. The patient is now ambulating, voiding, passing gas and tolerating food by mouth. We had a lengthy discussion regarding precautions for home care after preeclampsia. The patient is in agreement with the current plan of care. We will plan to follow-up in clinic in the next 2 to 3 days. We discussed precautions regarding blood pressure medications. All questions were answered. Physical Exam Narrative: EXAM NARRATIVE: General: Alert and oriented x3 Cardiac: Regular rate and rhythm without murmurs Lungs: Clear to auscultation bilaterally without wheezes, crackles or rhonchi Abdomen: Soft, minimal tenderness, fundus is firm and 1 cm below the umbilicus. Extremities: Trace edema in the bilateral lower extremities. Urinary Catheter Management^: Dobbs Latex Free: Cath Placed During This Visit: yes, but has since been removed by the nurse Reason for Continuing Indwelling Catheter: Decision to DC Catheter Urinary Catheter Date of Insertion: 01/31/21 Urinary Catheter Time of Insertion: 18:15 Date Urinary Catheter Removed: 02/01/21 Time Urinary Catheter Discontinued: 17:35 Discharge Data Data Completed and Pending: Labs from last 24 hours 02/01/21 02/01/21 14:21 14:21 WBC 10.6 H RBC 3.14 L Hgb 8.7 L Hct 26.8 L MCV 85.4 MCH 27.7 L MCHC 32.5 RDW 13.2 Plt Count 187 MPV 11.2 H Magnesium 5.9 Vitals: Last Vital Signs Temp 98.1 F 02/01/21 07:00 Pulse 75 02/02/21 10:02 Resp 18 02/02/21 03:00 BP 137/63 02/02/21 10:02 Pulse Ox 97 02/01/21 10:32 Discharge Plan Discharge Patient Disposition: Home Condition: Stable Prescriptions: New hydrocodone-acetaminophen 5-325 mg Tablet 1 tab PO Q6H PRN (Reason: Moderate To Severe Pain) Qty: 10 RF: 0 ibuprofen 800 mg Tablet 800 mg PO TID Qty: 60 RF: 0 amoxicillin 500 mg capsule 500 mg PO TID 10 Days Qty: 30 RF: 0 ferrous sulfate 325 mg (65 mg iron) tablet 325 mg PO BID 30 Days Qty: 60 RF: 0 Continued cimetidine 400 mg Tablet 400 mg PO BID RF: 0 1 mg Tablet 1 tab PO DAILY RF: 0 labetalol 100 mg Tablet 200 mg PO BID Qty: 120 RF: 0 Discharge Orders: Discharge Order (Routine); Ordered 02/02/21 Ordered By: Toni Carmen Referrals: Toni Carmen MD [Primary Care Provider] - 03/15/21 10:00 am (Your 6 week post- appointment is scheduled for 03/15/2021 at 10:00am with Dr. Carmen. Please also schedule a follow up appointment to see Dr Carmen on 02/04/21. ) Discharge Diet: Regular Discharge Activity: Limit activity as instructed Patient Instructions: Vitamins (By mouth), Pre-eclampsia and Eclampsia (DC), OB Discharge Report, OB Food/Drug Interaction Guide, Opioid Safety, OB Home Care, OB Your Care - [facility], OB Proud Parent Packet, OB Vaginal Deliveries, Abnormal Bleeding Activity Restrictions/Additional Instructions: Please limit activity for the first few days. Gradually increase as tolerated. Please watch blood pressures closely and let Dr. Carmen know if you are having problems with weaning blood pressure medications as we discussed. Nothing per vagina for 6 weeks. Discharge Attestations Time Spent in Discharge Care*: greater than 30 min Quality Metrics Clinical Quality Measures During this hospital stay, did patient experience: None Coding Level of Care Code Acute [facility] DC note
--- NOTE | 2021-02-02 17:59 | PC.NURSE ---
Prescriptions for amoxicillin, ferrous sulfate, ibuprofen and labetalol called into [facility] in [place], [place] per patient and physician request. Spoke to pharmacy customer care specialist at [facility] and received confirmation that prescriptions would be ready before closing.
== END 2021-02-02 18:29 | disposition home or self-care (01) | DRG 807 ==
PROVIDERS: Admitting Provider Family Medicine; PCP Family Medicine; Visit Provider Family Medicine
DX: O14.04 Mild to moderate pre-eclampsia, complicating childbirth (principal); Z37.0 Single live birth; Z3A.37 37 weeks gestation of pregnancy; O13.4 Gestational [pregnancy-induced] hypertension without significant proteinuria, complicating childbirth; O76 Abnormality in fetal heart rate and rhythm complicating labor and delivery; O70.1 Second degree perineal laceration during delivery; Z87.891 Personal history of nicotine dependence
CPT/HCPCS: 36415; 51702; 59025; 59409; 80053; 81001; 82570; 83735; 84156; 84550; 85025; 85027; 98960; J2405; J2795; J3475; J3490

== ENCOUNTER 2022-03-04 13:40 | Outpatient (CLI) | payer OTHER, BC, SELFPAY ==
[2022-03-04 14:12] LABS: Basophils % 0.2 %; Eosinophils % 0.7 %; Hematocrit 38.4 % (37.0-47.0); Lymphocytes # 1.8 10^3/uL (0.8-4.8); Lymphocytes % 29.3 %; Mean Corpuscular HGB Conc 31.3 g/dL (30.0-36.0); Mean Corpuscular Hemoglobin 24.5 pg (28.0-34.0); Mean Corpuscular Volume 78.4 fl (81-99); Mean Platelet Volume 10.5 fL (7.4-10.4); Monocytes # 0.4 10^3/uL (0.2-0.9); Monocytes % 6.5 %; Neutrophils # 3.81 10^3/uL (1.8-7.7); Nucleated Red Blood Cells % 0 %; Platelet Count 286 10^3/cmm (130-400); Red Cell Distribution Width 15.1 % (12.1-15.1)
[2022-03-04 15:00] LABS: Rubella IgG 47.2 IU/mL (0.0-10.0); Thyroid Stimulating Hormone 1.54 uIU/mL (0.27-4.20)
[2022-03-04 15:38] LABS: Progesterone 11.29 ng/mL
[2022-03-04 16:56] LABS: Hepatitis B Surface AB 4.1 (11.5-1000); Hepatitis B Surface Antigen Non-Reactive (Nonreactive); Hepatitis C Virus Antibody Non-Reactive (Nonreactive)
[2022-03-05 22:19] LABS: Rapid Plasma Reagin Syphilis Nonreactive (Nonreactive)
[2022-03-05 22:27] LABS: HIV 1 & 2 Antibody Non-Reactive (Non-Reactiv); HIV 1 & 2 Antigen Non-Reactive (Non-Reactiv)
== END 2022-03-04 13:41 | disposition home or self-care (01) ==
LOC: LAB 13:43
PROVIDERS: PCP Family Medicine; Visit Provider Family Medicine
DX: Z34.90 Encounter for supervision of normal pregnancy, unspecified, unspecified trimester (principal)
CPT/HCPCS: 84144; 84443; 85025; 86592; 86706; 86762; 86803; 86850; 86900; 87340; 87806

== ENCOUNTER → 2022-03-05 12:08 | Outpatient (BNVA) | payer OTHER, BC, SELFPAY | PROVIDERS: PCP Family Medicine; Visit Provider Family Medicine | DX: Z34.90 Encounter for supervision of normal pregnancy, unspecified, unspecified trimester (principal) | CPT/HCPCS: 80307; 81000; 81025; 84156; 87077; 87086; 87184; 87491; 87591; 87624; 87661; 88175 ==

== ENCOUNTER 2022-04-07 07:11 | Outpatient (CLI) | payer OTHER, BC, SELFPAY ==
--- NOTE | 2022-04-07 07:23 | US_ITS ---
WS: [id number] EARLY OBSTETRICAL ULTRASOUND (<14 WEEKS). HISTORY: DATING COMPARISON: None available. Single intrauterine gestational sac is identified. Cardiac activity at 167 BPM. [place]-rump length eleuterio sures 3.5 cm which corresponds to a gestation of 10w3d. Normal-appearing yolk sac and amnion demonstr ated. Small subchorionic hemorrhage.Cystic area adjacent to the uterus measures 1.2 x 1.2 x 2.1 cm. C onsistent with resolving subchorionic hemorrhage. No free fluid. Normal size ovaries with no mass. Corpus luteum associated with the RIGHT ovary measures 2.0 x 1.7 x 2.1 cm. Cervix is closed measuring 3.2 cm in length. US/US OB <= 14 weeks fetus [id number] IMPRESSION: 1. Single intrauterine gestation of 10 weeks 3 days and EDC of 10/31/2022. 2. Small resolving subchorionic hemorrhage. 3. Normal cardiac activity.
== END 2022-04-07 07:12 | disposition home or self-care (01) ==
PROVIDERS: PCP Family Medicine; Visit Provider Family Medicine
DX: Z34.80 Encounter for supervision of other normal pregnancy, unspecified trimester (principal); Z3A.10 10 weeks gestation of pregnancy
CPT/HCPCS: 76801

== ENCOUNTER → 2022-05-05 09:36 | Outpatient (BNVA) | payer OTHER, BC, SELFPAY | PROVIDERS: PCP Family Medicine; Visit Provider Family Medicine | DX: Z34.80 Encounter for supervision of other normal pregnancy, unspecified trimester (principal); Z3A.00 Weeks of gestation of pregnancy not specified | CPT/HCPCS: 81511 ==

== ENCOUNTER 2022-05-26 12:16 | Emergency (ER) | payer OTHER, SELFPAY ==
[2022-05-26 12:21] VITALS: BP 134/83; PULSE 70; RESP 16; TEMP 36.6; O2SAT 100; BMI 32.1
--- NOTE | 2022-05-26 13:54 | US_ITS ---
WS: [id number] ULTRASOUND OB FOCUSED HISTORY: pain/cramping COMPARISON: 04/07/2022 Single intrauterine gestation in breech position. Cervix is closed measuring 4.0 cm in length. Placen ta is posterior with no previa or abruption. Grade 0. There is a [place] Santana along the anterior [place] rine wall. Normal amniotic fluid. heart rate at 147 BPM. US/US OB limited [id number] IMPRESSION: 1. Posterior placenta with no abruption or previa. 2. [place] Santana along the anterior uterine wall.
[2022-05-26 14:47] LABS: Basophils % 0.1 %; Eosinophils % 0.3 %; Hematocrit 33.1 % (37.0-47.0); Hemoglobin 10.6 g/dL (11.5-15.3); Lymphocytes # 1.6 10^3/uL (0.8-4.8); Lymphocytes % 23.1 %; Mean Corpuscular Hemoglobin 26.4 pg (28.0-34.0); Mean Corpuscular Volume 82.5 fl (81-99); Mean Platelet Volume 10.7 fL (7.4-10.4); Monocytes # 0.4 10^3/uL (0.2-0.9); Monocytes % 6.3 %; Neutrophils # 4.85 10^3/uL (1.8-7.7); Neutrophils % 69.8 %; Nucleated Red Blood Cells % 0 %; Platelet Count 227 10^3/cmm (130-400); Red Blood Count 4.01 10^6/uL (4.1-5.3); Red Cell Distribution Width 15.7 % (12.1-15.1)
[2022-05-26 15:03] LABS: Alanine Aminotransferase 10 U/L (0-33); Alkaline Phosphatase 50 U/L (35-105); Aspartate Amino Transferase 11 U/L (0-32); Blood Urea Nitrogen 4 mg/dL (6-20); Calcium 8.8 mg/dL (8.5-10.5); Carbon Dioxide 24 mmol/L (22-29); Chloride 105 mmol/L (98-107); Globulin 2.6 g/dL (1.3-4.6); Glomerular Filtration Rate 150.3 mL/min (90-130); Glucose 81 mg/dL (65-115); Osmolality Calculated 284 mOsm/kg (285-295); Sodium 139 mmol/L (136-145); Total Bilirubin 0.3 mg/dL (0.15-1.2); Total Protein 6.6 g/dL (6.6-8.7)
--- NOTE | 2022-05-26 15:04 | ED_ITS ---
HPI - General: Chief complaint: OB/Uterine Contractions Stated complaint: Cramps, 18 weeks Time Seen by Provider: 05/26/22 14:24 Source: patient Mode of arrival: ambulatory Limitations: no limitations History of Present Illness: Patient is a nice 27-year-old female at approximately 18 weeks here for lower abdominal cramping that began around 6 AM this morning. She states cramps were intermittent and lasted for a few hours. She states upon arrival to the emergency department cramps have pretty much resolved. She is not complaining of any vaginal discharge or vagi nal bleeding. Patient has received routine OB care through Dr. Carmen and states she has not had any complications with the thus far. Is not complaining of any urinary symptoms. No nausea, vomiting, changes in bowel movements. MD Complaint: other (abdominal cramping) Onset (ago): hour(s) Pain Consistency: intermittent and now resolved Location: pelvis Severity: mild Quality: Cramping Radiation: pelvis Relieving factors: none Exacerbating factors: none Vaginal discharge: none Vaginal bleeding: none Date of Last Menstrual Period: 01/19/22 Patient : Yes OB History - Current : no complications care: followed by OB (Dr. Carmen) Associated symptoms: Reports no associated symptoms; Deny abdominal pain, dysuria, headache(s), malaise, nausea, vaginal discharge or vomiting Review of Systems Const: Denies: fever(s), chills, body aches, fatigue or malaise Card: Denies: chest pain Resp: Denies: dyspnea GI: Denies: abdominal pain, nausea, vomiting or diarrhea : Reports: pelvic pain (cramping-resolved now); Denies: flank pain, difficulty voiding, dysuria, urinary frequency, urinary urgency, urinary hesitancy, vaginal odor, vaginal bleeding or vaginal discharge Musc: Denies: neck pain, back pain, extremity pain or joint pain Skin/Breast: Denies: rash Neuro: Denies: headache(s), numbness in extremities, weakness in extremities, sensory changes, difficulty walking or dizziness PFS ED PFSH: Surgical History H/O hand surgery Social History Smoking and tobacco status: former smoker Quit status (tobacco): has quit using tobacco Alcohol intake: never Female Reproductive History: Date of last menstrual period: 01/19/22 Physical Exam Const: COMMON NORMALS: no acute distress, average body habitus, patient oriented x3, no limitations, healthy appearing, alert and well nourished GENERAL APPEARANCE: cooperative ORIENTATION/CONSCIOUSNESS: Yes awake, Yes oriented to person, Yes oriented to place and Yes oriented to time HENMT: COMMON NORMALS: normocephalic and atraumatic HEAD & SCALP: normal to inspection, normocephalic and atraumatic Resp: COMMON NORMALS: normal respiratory effort and clear to auscultation bilaterally AUSCULTATION: clear to auscultation bilaterally Cardio: COMMON NORMALS: regular rate and regular rhythm RATE: regular rate RHYTHM: regular rhythm GI: COMMON NORMALS: Normal to inspection, nondistended, normoactive bowel sounds present, Soft to palpation, non-tender, No hepatosplenomegaly present and no masses INSPECTION: Yes normal to inspection and Yes gravid abdomen AUSCULTATION: Yes normoactive bowel sounds PALPATION: Yes Soft to palpation and Yes No hepatosplenomegaly present : COMMON NORMALS: Yes no CVA tenderness BLADDER/KIDNEY EXAM: Yes no CVA tenderness Back/Pelvis: COMMON NORMALS: no CVA tenderness, thoracic and lumbar spine normal to inspection, no thoracic nor lumbar tenderness and thoraco-lumbar ROM normal Extremity: COMMON NORMALS: normal to inspection GENERAL: Yes normal exam except as noted Neuro: ABNER COMA SCALE: document GCS findings Abner coma scale eye opening: Spontaneous [place] coma scale verbal response: Orientated [place] coma scale motor response: Obey commands [place] coma scale total score: 15 COMMON NORMALS: patient oriented x3, moves all extremities, no focal motor deficits, no sensory deficits noted and gait normal SENSORIUM/ORIENTATION: Yes alert, Yes oriented to person, Yes oriented to place and Yes oriented to time Skin: COMMON NORMALS: no rashes or lesions noted GENERAL SKIN EXAM: no rashes or lesions noted Course Vital Signs: Vital signs: Vital Signs Temperature 97.8 F 05/26/22 12:21 Pulse Rate 70 05/26/22 12:21 Respiratory Rate 16 05/26/22 12:21 Blood Pressure 134/83 05/26/22 12:21 Pulse Oximetry 100 05/26/22 12:21 MDM - OB/Uterine Contractions Medical Decision Making Patient states she has not had any further cramping since arrival to the ED. She is not having any vaginal discharge, leaking of fluids, vaginal bleeding. OB ultrasound normal. Placenta showing no abruption or previa. They did mention [place] Santana contractions were noted. Vital signs are normal. Blood work overall is fairly unremarkable. She is mildly anemic with a hemoglobin of 10.6. Chemistry panel looks good. UA slightly suspicious for UTI however patient is not complaining of any urinary symptoms. We will go ahead and culture. Recommend her or Dr. Carmen follow-up on this in 48 hours and if growth is present she will need to begin antibiotic therapy at that time. Return to ED precautions given. Lab Data : 05/26/22 14:30 05/26/22 14:30 Radiology Impressions Obstetrics Ultrasound 05/26/22 13:54 IMPRESSION: 1. Posterior placenta with no abruption or previa. 2. [place] Santana along the anterior uterine wall. Laboratory Results WBC 7.0 10^3/uL (4.0-10.0) 05/26/22 14:30 RBC 4.01 10^6/uL (4.1-5.3) L 05/26/22 14:30 Hgb 10.6 g/dL (11.5-15.3) L 05/26/22 14:30 Hct 33.1 % (37.0-47.0) L 05/26/22 14:30 MCV 82.5 fl (81-99) 05/26/22 14:30 MCH 26.4 pg (28.0-34.0) L 05/26/22 14:30 MCHC 32.0 g/dL (30.0-36.0) 05/26/22 14:30 RDW 15.7 % (12.1-15.1) H 05/26/22 14:30 Plt Count 227 10^3/cmm (130-400) 05/26/22 14:30 MPV 10.7 fL (7.4-10.4) H 05/26/22 14:30 Neut % (Auto) 69.8 % 05/26/22 14:30 Lymph % (Auto) 23.1 % 05/26/22 14:30 [place] % (Auto) 6.3 % 05/26/22 14:30 Eos % (Auto) 0.3 % 05/26/22 14:30 Baso % (Auto) 0.1 % 05/26/22 14:30 Neut # (Auto) 4.85 10^3/uL (1.8-7.7) 05/26/22 14:30 Lymph # (Auto) 1.6 10^3/uL (0.8-4.8) 05/26/22 14:30 Murray # (Auto) 0.4 10^3/uL (0.2-0.9) 05/26/22 14:30 Eos # (Auto) 0.0 10^3/uL (0.0-0.8) 05/26/22 14:30 Baso # (Auto) 0.0 10^3/uL (0.0-0.1) 05/26/22 14:30 Nucleated RBC % (auto) 0 % 05/26/22 14:30 Nucleated RBCs # 0.0 /100WBC 05/26/22 14:30 Sodium 139 mmol/L (136-145) 05/26/22 14:30 Potassium 4.0 mmol/L (3.5-5.1) 05/26/22 14:30 Chloride 105 mmol/L (98-107) 05/26/22 14:30 Carbon Dioxide 24 mmol/L (22-29) 05/26/22 14:30 Anion Gap 14.0 (5-19) 05/26/22 14:30 BUN 4 mg/dL (6-20) L 05/26/22 14:30 Creatinine 0.5 mg/dL (0.5-0.9) 05/26/22 14:30 GFR Calculation 150.3 mL/min (90-130) H 05/26/22 14:30 Glucose 81 mg/dL (65-115) 05/26/22 14:30 Calculated Osmolality 284 mOsm/kg (285-295) L 05/26/22 14:30 Calcium 8.8 mg/dL (8.5-10.5) 05/26/22 14:30 Total Bilirubin 0.3 mg/dL (0.15-1.2) 05/26/22 14:30 AST 11 U/L (0-32) 05/26/22 14:30 ALT 10 U/L (0-33) 05/26/22 14:30 Alkaline Phosphatase 50 U/L (35-105) 05/26/22 14:30 Total Protein 6.6 g/dL (6.6-8.7) 05/26/22 14:30 Albumin 4.0 g/dL (3.5-5.2) 05/26/22 14:30 Globulin 2.6 g/dL (1.3-4.6) 05/26/22 14:30 Urine Color Dark yellow (Yellow) 05/26/22 14:48 Urine Appearance Sl hazy (CLEAR) 05/26/22 14:48 Urine pH 7 (5-7) 05/26/22 14:48 Ur Specific [place] 1.015 (1.005-1.030) 05/26/22 14:48 Urine Protein Neg (Negative) 05/26/22 14:48 Urine Glucose (UA) Norm (Normal) 05/26/22 14:48 Urine Ketones 1+ (Negative) H 05/26/22 14:48 Urine Blood Neg (Negative) 05/26/22 14:48 Urine Nitrate Negative (Negative) 05/26/22 14:48 Urine Bilirubin Neg (Negative) 05/26/22 14:48 Urine Urobilinogen 4 mg/dL (Negative) H 05/26/22 14:48 Ur Leukocyte Esterase 1+ (Negative) H 05/26/22 14:48 Urine RBC None /hpf (0-2) 05/26/22 14:48 Urine WBC 10-15 /hpf (0-5) H 05/26/22 14:48 Ur Squamous Epith Cells 5-10 /hpf (0-5) H 05/26/22 14:48 Amorphous Sediment Not Reportable 05/26/22 14:48 Urine Bacteria 2+ /hpf (NONE) H 05/26/22 14:48 Urine Mucus Trace /hpf 05/26/22 14:48 Discharge Plan Discharge Patient Disposition: Home Clinical Impression: Ronaldocynthia Fernandesk's contraction Condition: Stable Prescriptions: No Action Aspir-81 81 mg Tablet,Delayed Release (Dr/Ec) 81 mg PO DAILY labetalol 100 mg tablet 100 mg PO BID Multivitamins 28 mg iron- 800 mcg Tablet 1 tab PO DAILY Discharge Orders: Discharge ED (Routine); Ordered 05/26/22 Ordered By: Nany Oliveros Referrals: Toni Carmen MD [Primary Care Provider] - Activity Restrictions/Additional Instructions: As we discussed your Dr. Carmen needs to follow-up on your urine culture in approximately 48 hours to check for growth. If present you need to begin antibiotics. You need to return to the emergency department for more frequent or severe cramping, vaginal bleeding, discharge, leaking of fluids, lightheadedness/dizziness/passing out episodes, or any other concerns you may have. Otherwise please follow up with Dr. Carmen at your scheduled appointment next week. Coding Level of Care Code ED Latin Dancer for Chg Fwd Exam Comprehensive
[2022-05-26 15:17] LABS: Specific Gravity, Urine 1.015 (1.005-1.030); Urine Appearance SL Hazy (CLEAR); Urine Color Dark Yellow (Yellow); pH Urine 7 (5-7)
[2022-05-26 15:18] LABS: Add Urine Microscopic? YES; Bacteria Urine 2+ /hpf; Bilirubin Urine Neg (Negative); Blood Urine Neg (Negative); Glucose Urine UA Norm (Normal); Ketones Urine 1+ (Negative); Leukocyte Esterase Urine 1+ (Negative); Mucus Urine TRACE /hpf; Nitrate Urine Negative (Negative); Protein Urine Neg (Negative); Urobilinogen Urine 4 mg/dL (Negative)
[2022-05-26 15:19] LABS: Add Urine Culture? Yes
== END 2022-05-26 15:47 | disposition home or self-care (01) ==
PROVIDERS: Emergency Provider Physician Assistant; PCP Family Medicine
DX: O47.02 False labor before 37 completed weeks of gestation, second trimester (principal); Z3A.18 18 weeks gestation of pregnancy; Z87.891 Personal history of nicotine dependence
CPT/HCPCS: 36415; 76815; 80053; 81001; 85025; 87086; 99284

== ENCOUNTER 2022-06-04 06:10 | Outpatient (CLI) | payer OTHER, SELFPAY ==
--- NOTE | 2022-06-04 06:13 | US_ITS ---
WS: [id number] OBSTETRICAL ULTRASOUND COMPLETE HISTORY: Anatomy US COMPARISON: 04/07/2022 and 05/26/2022 Single intrauterine gestation in Cephalic presentation. Cervix is Closed and normal length. Cervical length is 4.5 cm. Normal amount of amniotic fluid surrounds the fetus. Placenta: Posterior, no previa. Placenta grade 1 Heart: 157 BPM. Four chambers are identified. Limited evaluation of the outflow tracts. Anatomy: Intracranial structures and the spine are poorly visualized. kidneys, stomach and urin meneu bladder are unremarkable. Abdominal wall, three-vessel cord and cord insertion site are normal. 4 extremities are present. profile: Poorly visualized. Gender: Male. measurements: BPD = 4.5 cm = 19w4d HC = 16.8 cm = 19w3d AC = 14.5 cm = 19w6d FL = 3.2 cm = 19w6d EFW: 312 g. Biometry is internally concordant. AGA by ultrasound: 19w5d TACHO by ultrasound: 10/24/2022 US/US OB >= 14 weeks fetus [id number] IMPRESSION: 1. Single intrauterine gestation of 19w5d with an TACHO of 10/24/2022. Appropria te growth since the first trimester ultrasound. 2. Limited screening survey of the anatomy. Very poor visualization of the int racranial structures and inaccurate measurement of the head. Limited eval uation of the cardiac outflow tracts and profile. Suggest short-term foll ow-up.
== END 2022-06-04 06:11 | disposition home or self-care (01) ==
LOC: RAD 06:11
PROVIDERS: PCP Family Medicine; Visit Provider Family Medicine
DX: Z34.92 Encounter for supervision of normal pregnancy, unspecified, second trimester (principal); Z3A.19 19 weeks gestation of pregnancy
CPT/HCPCS: 76805

== ENCOUNTER → 2022-06-20 14:55 | Outpatient (BNVA) | payer OTHER, SELFPAY | PROVIDERS: PCP Family Medicine; Visit Provider Family Medicine | DX: Z34.92 Encounter for supervision of normal pregnancy, unspecified, second trimester (principal); Z3A.21 21 weeks gestation of pregnancy | CPT/HCPCS: 76816 ==

== ENCOUNTER → 2022-08-01 08:03 | Outpatient (BNVA) | payer OTHER, SELFPAY | PROVIDERS: PCP Family Medicine; Visit Provider Family Medicine | DX: Z34.80 Encounter for supervision of other normal pregnancy, unspecified trimester (principal); Z3A.00 Weeks of gestation of pregnancy not specified | CPT/HCPCS: 82950 ==

== ENCOUNTER → 2022-08-12 16:17 | Outpatient (BNVA) | payer OTHER, SELFPAY | PROVIDERS: PCP Family Medicine; Visit Provider Family Medicine | DX: J02.9 Acute pharyngitis, unspecified (principal) | CPT/HCPCS: 87071; 87400; 87426; 87880 ==

== ENCOUNTER → 2022-09-01 15:55 | Outpatient (BNVA) | payer OTHER, SELFPAY | PROVIDERS: PCP Family Medicine; Visit Provider Family Medicine | DX: Z51.81 Encounter for therapeutic drug level monitoring (principal); Z34.80 Encounter for supervision of other normal pregnancy, unspecified trimester; I10 Essential (primary) hypertension; Z3A.00 Weeks of gestation of pregnancy not specified | CPT/HCPCS: 80053; 82570; 84156; 84550; 85025 ==

== ENCOUNTER 2022-10-02 13:36 | Outpatient (CLI) | payer OTHER, SELFPAY ==
[2022-10-02] VITALS (9 sets, daily range): BP systolic 110–136; BP diastolic 61–96; PULSE 78–93; RESP 17; BMI 34.9
[2022-10-02 14:53] LABS: Bilirubin Urine Neg (Negative); Blood Urine Neg (Negative); Glucose Urine UA Norm (Normal); Ketones Urine Negative (Negative); Leukocyte Esterase Urine Negative (Negative); Nitrate Urine Negative (Negative); Protein Urine Neg (Negative); Urine Appearance Hazy (CLEAR); Urine Color Yellow (Yellow); Urobilinogen Urine Neg (Negative); pH Urine 6 (5-7)
[2022-10-02 15:02] LABS: Add Urine Culture? No; Amorphous Sediment Urine 3+ /hpf; Bacteria Urine 2+ /hpf; Squamous Epithelial Cell Urine 15-25 /hpf (0-5)
== END 2022-10-02 15:58 | disposition home or self-care (01) ==
LOC: OPOB 13:43 → OBGYN 13:47 → OPOB 13:51
PROVIDERS: PCP Family Medicine; Visit Provider Family Medicine
DX: O26.899 Other specified pregnancy related conditions, unspecified trimester (principal); Z3A.00 Weeks of gestation of pregnancy not specified; R10.2 Pelvic and perineal pain; M54.50 Low back pain, unspecified
CPT/HCPCS: 59025; 81001; 99211

== ENCOUNTER 2022-10-03 12:56 | Outpatient (CLI) | payer OTHER, SELFPAY ==
--- NOTE | 2022-10-03 13:00 | US_ITS ---
WS: [id number] OB ultrasound for biophysical profile, 10/03/2022 Clinical Data: BOB/BPP 37 weeks Comparison: OB ultrasound, 06/20/2022 Findings: There is a single intrauterine in the breech presentation. The heart rate is 124 beat s per minute. The placenta is fundal and posterior. The biophysical profile is 8 of 8 with normal scores for breathing, movement, posture and tone and amniotic fluid volume. US/US OB BPP NST [id number] Impression: 1. Single intrauterine in breech presentation. 2. Biophysical profile 8 of 8. 3. heart rate 124 beats per minute.
== END 2022-10-03 12:57 | disposition home or self-care (01) ==
PROVIDERS: PCP Family Medicine; Visit Provider Family Medicine
DX: Z51.81 Encounter for therapeutic drug level monitoring (principal); O10.913 Unspecified pre-existing hypertension complicating pregnancy, third trimester; Z3A.37 37 weeks gestation of pregnancy; O32.1XX0 Maternal care for breech presentation, not applicable or unspecified
CPT/HCPCS: 76819; 80053; 84550; 85025

== ENCOUNTER 2022-10-10 11:58 | Outpatient (CLI) | payer OTHER, SELFPAY ==
--- NOTE | 2022-10-10 12:15 | US_ITS ---
WS: [id number] BIOPHYSICAL PROFILE AMNIOTIC FLUID HISTORY: BOB/BPP 40 weeks COMPARISON: 10/03/2022 Cardiac activity: 144 bpm. Cervix: closed. Placenta: Posterior, no previa or abruption. Placenta grade: 1 Parameters are as follows: Breathin Movement: 2 Tone: 2 Fluid volume: 2 Amniotic fluid index: 11.1 cm. Deep single vertical pocket 5.2 cm. US/US OB limited [id number] IMPRESSION: 1. Biophysical profile score: 8/8. 2. Normal amniotic fluid index is 11.1 cm.
== END 2022-10-10 11:59 | disposition home or self-care (01) ==
LOC: RAD 12:04
PROVIDERS: PCP Family Medicine; Visit Provider Family Medicine
DX: O16.9 Unspecified maternal hypertension, unspecified trimester (principal)
CPT/HCPCS: 76815

== ENCOUNTER 2022-10-10 12:43 | Outpatient (CLI) | payer OTHER, SELFPAY ==
[2022-10-10 12:43] VITALS: BMI 34.4
[2022-10-10 12:54] VITALS: BP 123/59; PULSE 86
[2022-10-10 13:11] VITALS: BP 120/58; PULSE 81
[2022-10-10 13:26] VITALS: BP 122/66; PULSE 82
== END 2022-10-10 13:30 | disposition home or self-care (01) ==
LOC: OPOB 12:49 → OBGYN 12:50
PROVIDERS: PCP Family Medicine; Visit Provider Family Medicine
DX: O16.9 Unspecified maternal hypertension, unspecified trimester (principal); Z3A.00 Weeks of gestation of pregnancy not specified
CPT/HCPCS: 59025

== ENCOUNTER 2022-10-17 12:05 | Outpatient (CLI) | payer OTHER, MEDICAID, SELFPAY ==
--- NOTE | 2022-10-17 12:15 | US_ITS ---
WS: [id number] BIOPHYSICAL PROFILE AMNIOTIC FLUID HISTORY: BOB/BPP 38 weeks COMPARISON: 10/10/2022 Cardiac activity: 133 bpm. Cervix: closed. Placenta: Fundal, no previa. Placenta grade: 1 Parameters are as follows: Breathin Movement: 2 Tone: 2 Fluid volume: 2 Amniotic fluid index: 10.5 cm. Single vertical pocket 4.0 cm. US/US OB BPP wo NST [id number] IMPRESSION: 1. Biophysical profile score: 8/8. 2. Normal amniotic fluid.
== END 2022-10-17 12:06 | disposition home or self-care (01) ==
PROVIDERS: PCP Family Medicine; Visit Provider Family Medicine
DX: Z34.93 Encounter for supervision of normal pregnancy, unspecified, third trimester (principal); Z3A.38 38 weeks gestation of pregnancy
CPT/HCPCS: 76819

== ENCOUNTER 2022-10-17 12:56 | Outpatient (CLI) | payer OTHER, MEDICAID, SELFPAY ==
[2022-10-17 13:05] VITALS: BP 117/66; PULSE 75; TEMP 35.7
[2022-10-17 13:08] VITALS: BMI 34.9
[2022-10-17 13:13] VITALS: RESP 15
[2022-10-17 13:20] VITALS: BP 122/62; PULSE 83
== END 2022-10-17 13:43 | disposition home or self-care (01) ==
LOC: OPOB 13:00 → OBGYN 13:01
PROVIDERS: PCP Family Medicine; Visit Provider Family Medicine
DX: O26.899 Other specified pregnancy related conditions, unspecified trimester (principal); Z3A.00 Weeks of gestation of pregnancy not specified
CPT/HCPCS: 59025; 99211

== ENCOUNTER 2022-10-22 17:36 | Inpatient (IN) | payer OTHER, MEDICAID, SELFPAY ==
[2022-10-22] VITALS (10 sets, daily range): BP systolic 109–129; BP diastolic 53–80; PULSE 74–86; RESP 16–17; TEMP 36.4; BMI 35.2
--- NOTE | 2022-10-22 18:06 | PM.HP ---
Providers/Chief Complaint Admitting Physician: Toni Carmen MD Primary Care Provider: Toni Carmen MD Chief Complaint: Induction of Labor History of Present Illness Michelle is a 27 y/o @ 39.3 weeks by LMP c/w 10 wk US. Preg c/b vaping - Quit in , cHTN on Labetalol 50mg BID, h/o preeclampsia, Hep B non-immune, anemia on iron, GBS bacteruria. The patient presents to labor and delivery for a scheduled induction of labor secondary to chronic hypertension. She is feeling well at this time. She denies any headaches, nausea, seeing flashes of light, chest pains, shortness of breath, vomiting, diarrhea, constipation, fevers, leaks fluid, vaginal bleeding. Medications/Allergies Home Medications Medication Instructions Recorded Confirmed Last Taken Type vit no.95-ferrous 1 tab PO DAILY 05/26/22 10/16/22 10/17/22 08:00 History fumarate 28 mg-folic acid 800 mcg tablet ( Multivitamins) ferrous sulfate 325 mg (65 mg 325 mg PO BID #60 tabs 09/02/22 10/16/22 10/17/22 08:00 Rx iron) tablet labetalol 100 mg tablet 100 mg PO BID #60 tabs 10/03/22 10/16/22 10/17/22 08:00 Rx Allergies Allergy/AdvReac Type Severity Reaction Status Date / Time No Known Allergies Allergy Verified 10/02/22 14:51 PFSH Acute PFSH: Medical History (Updated 10/22/22 @ 18:08 by Toni Carmen MD) Preeclampsia Surgical History H/O hand surgery Social History Smoking and tobacco status: former smoker Quit status (tobacco): has quit using tobacco Alcohol intake: never Female Reproductive History: Date of last menstrual period: 01/19/22 Vitals/I&O/Wt Last Vital Signs Pulse 84 10/22/22 17:55 BP 122/80 10/22/22 17:55 Physical Exam Narrative: General: Alert and oriented x3 Eyes: Pupils equal round and reactive to light and accommodation Mouth: Mucous membranes moist, pharynx non-erythematous Cardiac: Regular rate and rhythm without murmurs Lungs: Clear to auscultation bilaterally without wheezes, crackles or rhonchi Abdomen: Soft, non-tender, fundus consistent with gestational age Extremities: Trace edema in the bilateral lower extremities : Cervix is 1/30/-4/firm/mid position A&P Assessment and plan (1) Hypertension: (2) Supervision of normal intrauterine in multigravida: The patient is feeling well at this time. Initial blood pressure is 122/80. We will plan to proceed with induction of labor secondary to chronic hypertension. heart tones are in the mid 130s with moderate variability good accelerations with a category 1 tracing. The patient is pamela every 3 to 4 minutes on her own. Her cervix is firm and her Quintana score is low. We will plan to proceed with Cytotec for induction of labor. We will use up to 3 doses. Plan of care discussed with patient and she is in agreement with current plan of care. Attestations Medical Necessity Statement*: The patient will be here for greater than 2 midnights due to routine intrapartum and management of labor and delivery. Coding Level of Care Code Acute Code for Chg Fwd Diagnoses Hypertension I10 Supervision of normal intrauterine in multigravida Z34.80
[2022-10-22] MEDS: miSOPROStol 100 mcg tablet 25 MCG VAGINAL ×2 (18:30→22:33)
[2022-10-22 18:32] LABS: Basophils % 0.1 %; Eosinophils % 0.4 %; Hematocrit 34.5 % (37.0-47.0); Hemoglobin 10.8 g/dL (11.5-15.3); Lymphocytes # 1.7 10^3/uL (0.8-4.8); Lymphocytes % 17.9 %; Mean Corpuscular HGB Conc 31.3 g/dL (30.0-36.0); Mean Corpuscular Hemoglobin 26.1 pg (28.0-34.0); Mean Corpuscular Volume 83.3 fl (81-99); Mean Platelet Volume 10.7 fL (7.4-10.4); Monocytes # 0.6 10^3/uL (0.2-0.9); Monocytes % 6.3 %; Neutrophils # 6.98 10^3/uL (1.8-7.7); Neutrophils % 74.7 %; Nucleated Red Blood Cells % 0 %; Platelet Count 201 10^3/cmm (130-400); Red Blood Count 4.14 10^6/uL (4.1-5.3); Red Cell Distribution Width 21.7 % (12.1-15.1); White Blood Count 9.4 10^3/uL (4.0-10.0)
[2022-10-22] MEDS: ampicillin 2,000 MG in sodium chloride 0.9% (plus) 50 ML 100 MG IV (18:44)
[2022-10-22] MEDS: dextrose 5%-lactated ringers 1,000 ML 125 ML IV (18:44)
[2022-10-22 19:41] LABS: Amphetamines Screen Urine Negative (Negative); Barbiturates Screen Urine Negative (Negative); Benzodiazepines Screen Urine Negative (Negative); Cocaine Screen Urine Negative (Negative); Opiate Screen Urine Negative (Negative); PCP Screen Urine Negative (Negative); THC Screen Urine Negative (Negative)
[2022-10-22] MEDS: ampicillin 1,000 MG in sodium chloride 0.9% (plus) 50 ML 100 MG IV (22:29)
[2022-10-23] VITALS (43 sets, daily range): BP systolic 106–151; BP diastolic 53–87; PULSE 64–85; RESP 15–16; TEMP 36.2–36.7
[2022-10-23] MEDS: ampicillin 1,000 MG in sodium chloride 0.9% (plus) 50 ML 100 MG IV ×5 (02:29→18:45)
[2022-10-23] MEDS: miSOPROStol 100 mcg tablet 25 MCG VAGINAL (02:30)
[2022-10-23] MEDS: oxytocin 30 UNIT/500 ML BAG 4 UNIT IV (07:05)
[2022-10-23] MEDS: dextrose 5%-lactated ringers 1,000 ML 125 ML IV (13:19)
--- NOTE | 2022-10-23 16:02 | P.PN_ITS ---
Subjective Subjective: The patient is doing well today. This morning she had changed to 1.5 cm dilation after 3 doses of Cytotec. She was started on IV Pitocin. She is currently on 20 units of IV Pitocin. She is feeling the contractions, however they are not very painful for her. heart tones are in the mid 13 0s with moderate variability good accelerations with a category 1 tracing. Contractions are every 1 to 3 minutes. Vitals/I&O/Wt Last Vital Signs Temp 97.2 F L 10/23/22 10:28 Pulse 80 10/23/22 15:04 Resp 17 10/22/22 21:57 BP 126/67 10/23/22 15:04 O2 Del Method 10/22/22 18:00 10/23/22 10/23/22 10/23/22 06:59 14:59 22:59 Intake Total 1100 / 1200 92.733 / 92.733 Balance 1100 / 1200 92.733 / 92.733 Weight last 48 hrs Weight 225 lb Physical Exam Narrative: General: Alert and oriented x3 Cardiac: Regular rate and rhythm without murmurs Lungs: Clear to auscultation bilaterally without wheezes, crackles or rhonchi Abdomen: Soft, non-tender, fundus consistent with gestational age : Cervix is 4/70/-3/soft/mid position Data 10/22/22 18:00 Micro: Microbiology 10/22/22 19:00 Chlamydia trachomatis (SYLVAIN) - Final Urine Random Neisseria gonorrhoeae (SYLVAIN) - Final A&P Assessment and plan (1) Supervision of normal intrauterine in multigravida: The patient is currently doing well. Her pain is minimal at this time. She is making change with the IV Pitocin. Continue with current treatment. heart tones are category 1 tracing. Once head is well applied if her water is not broken yet, we will plan to rupture membranes. Continue with current plan of care. Attestations Medical Necessity Statement*: The patient is doing well at this time. Her stay will cross 2 midnights due to routine intrapartum and management of labor and delivery. Coding Level of Care Code Acute Code for Chg Fwd Diagnoses Supervision of normal intrauterine in multigravida Z34.80
[2022-10-23] MEDS: butorphanol 2 mg/mL SDV 1 mL 1 MG IVP (17:34)
[2022-10-23] MEDS: miSOPROStol 200 mcg Tablet 800 MCG PR (20:02)
--- NOTE | 2022-10-23 20:18 | PM.DELIVERY ---
Delivery Note: Date of delivery: October 23, 2022 Pre-delivery diagnoses: 1. Intrauterine at 39.4 weeks gestation 2. Vaping during first trimester 3. Chronic hypertension on labetalol 50 mg twice daily 4. History of preeclampsia 5. Hepatitis B nonimmune 6. Anemia 7. GBS bacteriuria Post-delivery diagnoses: 1. Intrauterine status post spontaneous vaginal delivery at 39.4 weeks gestation 2. Vaping during first trimester 3. Chronic hypertension on labetalol 50 mg twice daily 4. History of preeclampsia 5. Hepatitis B nonimmune 6. Anemia 7. GBS bacteriuria status post multiple doses of ampicillin 8. Heavy bleeding after delivery without hemorrhage 9. Delivery of healthy male weighing 7 pounds 5 ounces with Apgars of 9 and 9 Procedure: Spontaneous vaginal delivery Delivering Physician: Toni Carmen MD Estimated blood loss (mL): 350 Pre-Delivery Course: Michelle is a 27 y/o G3 now P2 status post spontaneous vaginal delivery @ 39.4 weeks by LMP c/w 10 wk US. Preg c/b vaping - Quit in 1st TM, cHTN on Labetalol 50mg BID, h/o preeclampsia, Hep B non-immune, anemia on iron, GBS bacteruria. The patient was admitted to labor and delivery on the evening of 10/22/2022 for induction of labor secondary to chronic hypertension. The patient did not have any significant complications and had no severe features. The patient was given 3 doses of Cytotec overnight and changed from 1 cm to 1.5 cm by the morning of 10/23/2022. The patient was then started on IV Pitocin and ampicillin was started for GBS prophylaxis. The patient had contractions every 1 to 3 minutes and made gradual change. AROM was performed at 1926 on 10/23/2022 to augment labor. The patient was 7 cm dilated at that time. The patient then made rapid change and was complete by 1937 on 10/23/2022. Delivery: The patient began pushing at 1937 on 10/23/2022. The patient pushed well and the infant delivered in the OA position at 1938 on 10/23/2022. There was 1 nuchal cord and it was reduced prior to delivery of the . The right shoulder was the anterior shoulder and it delivered with gentle downward pressure. The rest of the delivered with ease. The infant was crying immediately upon delivery. The 's mouth and nose were bulb suctioned by myself. The was then placed on the mother's chest where the nurses were waiting to care for him. The cord was clamped by myself after approximately 1 minute and cut by the infant's mother. Cord blood was obtained. The cord was then drained of blood and traction was placed on the umbilical cord. Uterine massage was carried out. The placenta delivered at 1944 without complications. The placenta was noted to be intact with a central umbilical cord insertion site. IV Pitocin was bolused. The cervix was inspected and no lacerations were noted. The vaginal wall was inspected and a small abrasion was noted in the perineal region. This did not need suturing. Uterine massage was carried out. The patient had moderate to heavy bleeding. A red rubber catheter was used to drain the bladder of urine. The patient continued to have moderate bleeding so a speculum was used to reevaluate the cervix. No lacerations were noted. Cytotec 800 mcg was placed rectally and TXA was given IV. The patient's bleeding then began to slow down gradually. Currently both the mother and are doing well. History History History 3 Term 2 0 Miscarriages/Ectopic 1 Living Children 2 Past Pregnancies Del. Date GA/Weeks Outcome Route Wt Inf Gender Labor Lgth Comp. Anesthesia Location 09/28/17 6 spontaneous 01/31/21 37 live - full term Vaginal 7 lb 8 oz Male 36 [facility] [place] 10/23/22 39 live - full term Vaginal 7 lb 5 oz Male 25 hrs [facility] - [place] Delivery Date: 09/28/17 Last Updated by: Toni Carmen MD Miscarriage ~6-7 weeks Delivery Date: 01/31/21 Last Updated by: Toni Carmen MD Severe Preeclampsia - induced, Mag, late transfer of care, smoking in 1st TM. Delivery Date: 10/23/22 Last Updated by: Toni Carmen MD Heavy bleeding - Cytotec/TXA given, cHTN on labetalol, Stadol - no epidural. A&P Assessment and plan (1) Spontaneous vaginal delivery: Coding Level of Care Code Acute Code for Chg Fwd Diagnoses Spontaneous vaginal delivery O80
[2022-10-23] MEDS: oxytocin 30 UNIT/500 ML BAG 60 UNIT IV (20:20)
[2022-10-23] MEDS: ibuprofen 800 mg tablet PO (22:09)
[2022-10-24] VITALS (7 sets, daily range): BP systolic 112–136; BP diastolic 55–79; PULSE 67–88; RESP 18; TEMP 36.5–36.8; O2SAT 98
[2022-10-24 08:55] LABS: Hemoglobin 10.5 g/dL (11.5-15.3); Mean Corpuscular HGB Conc 31.8 g/dL (30.0-36.0); Mean Corpuscular Hemoglobin 26.8 pg (28.0-34.0); Mean Corpuscular Volume 84.2 fl (81-99); Mean Platelet Volume 10.5 fL (7.4-10.4); Platelet Count 172 10^3/cmm (130-400); Red Blood Count 3.92 10^6/uL (4.1-5.3); Red Cell Distribution Width 21.4 % (12.1-15.1); White Blood Count 11.5 10^3/uL (4.0-10.0)
[2022-10-24] MEDS: ferrous sulfate EC 325 mg Tablet PO (09:25)
[2022-10-24] MEDS: docusate sodium 100 mg Capsule PO ×2 (09:25→21:25)
[2022-10-24] MEDS: prenatal vitamin Capsule 1 CAP PO (09:25)
[2022-10-24] MEDS: ibuprofen 800 mg tablet PO ×3 (09:26→21:25)
[2022-10-24] MEDS: labetalol 200 mg Tablet 50 MG PO ×2 (09:27→21:25)
--- NOTE | 2022-10-24 13:02 | PM.PN ---
Subjective Subjective: The patient is doing well today. Her bleeding is decreasing well. Her pain is improving. She is ambulating, voiding, passing gas and tolerating food by mouth. Vitals/I&O/Wt Last Vital Signs Temp 97.5 F L 10/23/22 21:39 Pulse 88 10/24/22 09:25 Resp 16 10/23/22 21:57 BP 136/63 10/24/22 09:25 O2 Del Method 10/22/22 18:00 10/23/22 10/24/22 10/24/22 22:59 06:59 14:59 Intake Total 900.000 / 992.733 Output Total 200 / 200 Balance 700.000 / 792.733 Weight last 48 hrs Weight 225 lb Physical Exam Narrative: General: Alert and oriented x3 Cardiac: Regular rate and rhythm without murmurs Lungs: Clear to auscultation bilaterally without wheezes, crackles or rhonchi Abdomen: Soft, mild tenderness over uterus. The uterus is firm and 2 cm below the umbilicus. Extremities: Trace edema in the bilateral lower extremities Data 10/24/22 08:05 Micro: Microbiology 10/22/22 19:00 Chlamydia trachomatis (SYLVAIN) - Final Urine Random Neisseria gonorrhoeae (SYLVAIN) - Final A&P Assessment and plan (1) Spontaneous vaginal delivery: The patient is doing well at this time. We will proceed with routine care. Routine instructions were discussed. All questions were answered. Plan for discharge home tomorrow morning. Attestations Medical Necessity Statement*: The patient will be here for greater than 2 midnights due to routine intrapartum and management of labor and delivery. Coding Level of Care Code Acute Code for Chg Fwd Diagnoses Spontaneous vaginal delivery O80
[2022-10-25 04:00] VITALS: BP 142/84; PULSE 75; RESP 18; TEMP 36.8; O2SAT 95
--- NOTE | 2022-10-25 06:13 | PM.DCS ---
Discharge Providers Date of Admission: 10/22/22 17:36 Date of Discharge: October 25, 2022 Attending Provider at Admission: Toni Carmen MD Attending Provider at Discharge: Toni Carmen MD Primary Care Provider: Toni Carmen MD Diagnoses at Discharge Discharge Diagnosis (1) Spontaneous vaginal delivery: Status: Acute Other Information Additional DC diagnoses/information: 1.? Intrauterine status post spontaneous vaginal delivery at 39.4 weeks gestation 2.? Vaping during first trimester 3.? Chronic hypertension on labetalol 50 mg twice daily 4.? History of preeclampsia 5.? Hepatitis B nonimmune 6.? Anemia 7.? GBS bacteriuria status post multiple doses of ampicillin 8.? Heavy bleeding after delivery without hemorrhage 9.? Delivery of healthy male weighing 7 pounds 5 ounces with Apgars of 9 and 9? Reason for Visit Reason for Visit: Induction of Labor Brief History: Michelle is a 27 y/o G3 now P2 status post spontaneous vaginal delivery @ 39.4 weeks by LMP c/w 10 wk US. Preg c/b vaping - Quit in , cHTN on Labetalol 50mg BID, h/o preeclampsia, Hep B non-immune, anemia on iron, GBS bacteruria. The patient was admitted to labor and delivery on the evening of 10/22/2022 for induction of labor secondary to chronic hypertension.? The patient did not have any significant complications and had no severe features.? Hospital Course Hospital Course The patient was admitted and induced with Cytotec. She was given IV Pitocin for augment labor and received ampicillin for GBS prophylaxis. The patient had an uncomplicated intrapartum course and delivered vaginally at 1939 on 10/23/2022. She had a small abrasion in the perineal region. She had no cervical lacerations. She did have heavier bleeding initially and received 800 mcg of Cytotec OK and TXA IV. The patient's bleeding decreased well. she has done well. Her blood pressures have been in the 130s and 140s. She is taking labetalol 50 mg twice a day for treatment of this. She is to continue this and watch her blood pressures at home. If having any concerns she is to let me know. The patient is ambulating, voiding, passing gas and tolerating food by mouth. Routine discharge instructions were discussed. The patient is in agreement with discharge home at this time. Physical Exam Narrative: General: Alert and oriented x3 Cardiac: Regular rate and rhythm without murmurs Lungs: Clear to auscultation bilaterally without wheezes, crackles or rhonchi Abdomen: Soft, mild tenderness over uterus. The uterus is firm and 2 cm below the umbilicus. Extremities: Trace edema in the bilateral lower extremities Discharge Data Studies Completed and Pending Laboratory Results WBC 11.5 10^3/uL (4.0-10.0) H 10/24/22 08:05 RBC 3.92 10^6/uL (4.1-5.3) L 10/24/22 08:05 Hgb 10.5 g/dL (11.5-15.3) L 10/24/22 08:05 Hct 33.0 % (37.0-47.0) L 10/24/22 08:05 MCV 84.2 fl (81-99) 10/24/22 08:05 MCH 26.8 pg (28.0-34.0) L 10/24/22 08:05 MCHC 31.8 g/dL (30.0-36.0) 10/24/22 08:05 RDW 21.4 % (12.1-15.1) H 10/24/22 08:05 Plt Count 172 10^3/cmm (130-400) 10/24/22 08:05 MPV 10.5 fL (7.4-10.4) H 10/24/22 08:05 Neut % (Auto) 74.7 % 10/22/22 18:00 Lymph % (Auto) 17.9 % 10/22/22 18:00 [place] % (Auto) 6.3 % 10/22/22 18:00 Eos % (Auto) 0.4 % 10/22/22 18:00 Baso % (Auto) 0.1 % 10/22/22 18:00 Neut # (Auto) 6.98 10^3/uL (1.8-7.7) 10/22/22 18:00 Lymph # (Auto) 1.7 10^3/uL (0.8-4.8) 10/22/22 18:00 [place] # (Auto) 0.6 10^3/uL (0.2-0.9) 10/22/22 18:00 Eos # (Auto) 0.0 10^3/uL (0.0-0.8) 10/22/22 18:00 Baso # (Auto) 0.0 10^3/uL (0.0-0.1) 10/22/22 18:00 Nucleated RBC % (auto) 0 % 10/22/22 18:00 Nucleated RBCs # 0.0 /100WBC 10/22/22 18:00 Urine Opiates Screen Negative ng/mL (Negative) 10/22/22 19:00 Ur Barbiturates Screen Negative ng/mL (Negative) 10/22/22 19:00 Ur Phencyclidine Scrn Negative ng/mL (Negative) 10/22/22 19:00 Ur Amphetamines Screen Negative ng/mL (Negative) 10/22/22 19:00 U Benzodiazepines Scrn Negative ng/mL (Negative) 10/22/22 19:00 Urine Cocaine Screen Negative ng/mL (Negative) 10/22/22 19:00 U Marijuana (THC) Screen Negative ng/mL (Negative) 10/22/22 19:00 Blood Type B Positive 10/22/22 18:00 Rho(D) Type Positive 10/22/22 18:00 Antibody Screen Negative 10/22/22 18:00 Vitals Last Vital Signs Temp 98.2 F 10/25/22 04:00 Pulse 75 10/25/22 04:00 Resp 18 10/25/22 04:00 BP 142/84 10/25/22 04:00 Pulse Ox 95 10/25/22 04:00 O2 Del Method 10/25/22 04:00 Discharge Plan Discharge Patient Disposition: Home Condition: Good Prescriptions: New ibuprofen 800 mg Tablet 800 mg PO TID Qty: 30 0RF Continued ferrous sulfate 325 mg (65 mg iron) tablet 325 mg PO BID Qty: 60 6RF PNV cmb#95-ferrous fumarate-FA [ Multivitamins] 28 mg iron- 800 mcg Tablet 1 tab PO DAILY Changed labetalol 100 mg tablet 50 mg PO BID Qty: 60 3RF Discharge Orders: Discharge Order (Routine); Ordered 10/25/22 Ordered By: Toni Carmen Patient Instructions: Opioid Safety Activity Restrictions/Additional Instructions: Nothing per vagina for 6 weeks. If you have any concern for complications, please let Dr. Carmen know. Please track her blood pressure at least once a day for the next couple of weeks to be sure that it is not increasing at home. Discharge Attestations Time Spent in Discharge Care*: less than 30 min Quality Metrics Clinical Quality Measures [ No reported AMI, CVA or VTE this stay] Coding Level of Care Code Acute Chg FW DC note Diagnoses Spontaneous vaginal delivery O80
[2022-10-25] MEDS: docusate sodium 100 mg Capsule PO (09:16)
[2022-10-25] MEDS: labetalol 200 mg Tablet 50 MG PO (09:16)
[2022-10-25] MEDS: ibuprofen 800 mg tablet PO (09:16)
[2022-10-25] MEDS: prenatal vitamin Capsule 1 CAP PO (09:16)
[2022-10-25] MEDS: ferrous sulfate EC 325 mg Tablet PO (09:17)
[2022-10-25 09:30] VITALS: BP 138/79; PULSE 92; RESP 17; TEMP 36.9; O2SAT 98
== END 2022-10-25 09:55 | disposition home or self-care (01) | DRG 806 ==
PROVIDERS: Admitting Provider Family Medicine; PCP Family Medicine; Visit Provider Family Medicine
DX: O10.92 Unspecified pre-existing hypertension complicating childbirth (principal); O72.1 Other immediate postpartum hemorrhage; Z37.0 Single live birth; O99.02 Anemia complicating childbirth; D64.9 Anemia, unspecified; O99.824 Streptococcus B carrier state complicating childbirth; O69.81X0 Labor and delivery complicated by cord around neck, without compression, not applicable or unspecified; Z3A.39 39 weeks gestation of pregnancy; Z87.59 Personal history of other complications of pregnancy, childbirth and the puerperium; Z87.891 Personal history of nicotine dependence; Z79.899 Other long term (current) drug therapy; Z28.39 Other underimmunization status
CPT/HCPCS: 36415; 59025; 59409; 80306; 85025; 85027; 86850; 86900; 87491; 87591; 96374; 98960; 99211; J0290; J0595; J2590; J7121

== ENCOUNTER → 2023-05-15 12:14 | Outpatient (BNVA) | payer MEDICAID, SELFPAY | PROVIDERS: PCP Family Medicine; Visit Provider Family Medicine | DX: F32.A Depression, unspecified (principal); Z39.2 Encounter for routine postpartum follow-up | CPT/HCPCS: 84439; 84443 ==

== ENCOUNTER 2023-06-24 07:33 | Emergency (ER) | payer MEDICAID, SELFPAY ==
[2023-06-24 07:41] VITALS: BP 130/79; PULSE 79; RESP 18; TEMP 36.8; O2SAT 100; BMI 31.3
--- NOTE | 2023-06-24 07:56 | ED_ITS ---
HPI - Syncope General: Chief Complaint: Syncope Stated Complaint: fainted, low bp Time Seen by Provider: 06/24/23 07:43 History of Present Illness: 28-year-old female presents the emergency department after a syncopal episode at work this morning at around 6:30 in the morning. Patient reports she woke up at about 330 to get ready for work. This is about her usual routine. She had some coffee and pop tarts on the way to work. She felt completely fine walking into work and was talking with some of her colleagues getting ready for the day. At around 630 she said that she yell and and stretched. She felt lightheaded afterwards but did not think much of it originally. However over the next couple minutes she said she continued to feel lightheaded, got sort of a warm flushed feeling, tunnel vision, started zoning out, and reportedly had a brief syncope. Her colleagues were aware of what was happening and she did not fall over. It is unclear whether she completely lost tone or not. Shortly afterwards she recovered. They took her blood pressure and it was 96/45 in [place]. Since then it has recovered. They gave her some orange juice and cooled her off. Now she feels back to normal. She denies any cardiopulmonary disease, sudden cardiac in her family, DVT or PE signs or symptoms, history of arrhythmia, blood sugar issues, labile blood pressure, etc. However, it is noted that she appears somewhat pale. She says that she has pretty long and heavy menstrual cycles. She just finished her menstrual cycle yesterday. Associated symptoms: Deny abdominal pain, chest pain, fever(s), headache(s) or nausea Review of Systems General: Reports: 10 or more systems reviewed and unremarkable except in HPI and below Const: Denies: fever(s), chills or body aches Eyes: Denies: change in vision ENMT: Denies: throat pain Card: Denies: chest pain, edema or syncope Resp: Denies: dyspnea or productive cough GI: Denies: abdominal pain, nausea, vomiting or diarrhea : Denies: flank pain, dysuria or urinary frequency Musc: Denies: neck pain, back pain, extremity pain or extremity swelling Skin/Breast: Denies: rash or erythema Neuro: Denies: headache(s), numbness in extremities, weakness in extremities, lack of coordination or difficulty walking PFSH ED PFSH: Medical History Preeclampsia Surgical History H/O hand surgery Social History Smoking and tobacco status: former smoker Quit status (tobacco): has quit using tobacco Alcohol intake: never Substance/Drug Use: former Date of last use: Quit during early using THC Physical Exam Const: COMMON NORMALS: no limitations, alert and well nourished EXAM LIMITATIONS: no altered mental status HENMT: COMMON NORMALS: normocephalic, atraumatic and external ears normal HEAD & SCALP: normocephalic and atraumatic EXTERNAL EAR: Yes external ears normal MOUTH: no muffled voice Eye: COMMON NORMALS: EOMs intact bilaterally, conjunctivae normal and no scleral icterus CONJUNCTIVA: Yes conjunctivae normal Neck/C-Spine: COMMON NORMALS: no JVD GENERAL: Yes normal visual inspection and Yes trachea midline Resp: COMMON NORMALS: normal respiratory effort, No use of accessory muscles and clear to auscultation bilaterally AUSCULTATION: clear to auscultation bilaterally Cardio: COMMON NORMALS: no JVD, regular rate and regular rhythm RATE: regular rate RHYTHM: regular rhythm GI: COMMON NORMALS: Soft to palpation and non-tender PALPATION: Yes Soft to palpation and No Guarding due to palpation present (GI) Extremity: COMMON NORMALS: normal to inspection Neuro: COMMON NORMALS: moves all extremities, no focal motor deficits and no sensory deficits noted SENSORIUM/ORIENTATION: Yes alert SPEECH: speech normal Psych: COMMON NORMALS: mental status grossly normal, Normal thought process present, cooperative, normal affect and speech normal SPEECH: Yes normal speech THOUGHT PROCESS: Normal thought process present Skin: COMMON NORMALS: no rashes or lesions noted, turgor normal and no jaund ice GENERAL SKIN EXAM: no rashes or lesions noted, turgor normal, no ecchymo, no erythema and pallor Course Vital Signs: Vital signs: Vital Signs Temperature 98.3 F 06/24/23 07:41 Pulse Rate 79 06/24/23 07:41 Respiratory Rate 18 06/24/23 07:41 Blood Pressure 130/79 06/24/23 07:41 Pulse Oximetry 100 06/24/23 07:41 Oxygen Delivery Me thod Room Air 06/24/23 07:41 MDM - Syncope Medical Decision Making 28-year-old female with syncope at work. She had a prodrome of lightheadedness. She recovered quickly. No seizure-like activity. Hypoglycemia is quite unlikely given that she had coffee with some sugar in it and pop tarts prior to the onset of symptoms. Her examination is normal with the exception of pallor. She has pale conjunctiva, pale palms, pale oral mucosa. I did orthostatic vital signs on her at bedside. They were negative and she was not subjectively dizzy. Her heart demonstrates a regular rhythm and normal rate. Low suspicion for DVT or PE. No calf or arm pain, no cough, no pleuritic chest pain, no hemoptysis. The plan is to obtain an EKG, hCG serum, CMP, CBC. UPDATE 0848 Hgb 8.6, MCV 67.9 --> this explains her syncope. She denies dark/black stools. This is combo iron deficiency and blood loss anemia. Pt already on control. Plan--> iron supplementation and f/u hgb recheck 2 weeks. EKG obtained at 05 26 shows a sinus rhythm, normal axis, minimal intraventric ular conduction delay, otherwise normal intervals, no concerning ST segment elevations or depressions, no ectopy. Lab Data 06/24/23 08:33 06/24/23 08:33 Laboratory Results WBC 4.04 10^3/uL (3.29-11.43) 06/24/23 08:33 RBC 4.43 10^6/uL (3.85-5.65) 06/24/23 08:33 Hgb 8.60 g/dL (11.27-16.99) L 06/24/23 08:33 Hct 30.1 % (36-47) L 06/24/23 08:33 MCV 67.9 fl (85-98) L 06/24/23 08:33 MCH 19.4 pg (27-33) L 06/24/23 08:33 MCHC 28.6 g/dL (30-55) L 06/24/23 08:33 RDW 15.6 % (12.1-15.1) H 06/24/23 08:33 Plt Count 259 10^3/cmm (157-399) 06/24/23 08:33 MPV 9.3 fL (7.4-10.4) 06/24/23 08:33 Neut % (Auto) 70.9 % 06/24/23 08:33 Lymph % (Auto) 21.8 % 06/24/23 08:33 [facility] % (Auto) 5.4 % 06/24/23 08:33 Eos % (Auto) 0.7 % 06/24/23 08:33 Baso % (Auto) 1.0 % 06/24/23 08:33 Neut # (Auto) 2.86 10^3/uL (1.8-7.7) 06/24/23 08:33 Lymph # (Auto) 0.9 10^3/uL (0.8-4.8) 06/24/23 08:33 [facility] # (Auto) 0.2 10^3/uL (0.2-0.9) 06/24/23 08:33 Eos # (Auto) 0.0 10^3/uL (0.0-0.8) 06/24/23 08:33 Baso # (Auto) 0.0 10^3/uL (0.0-0.1) 06/24/23 08:33 Nucleated RBC % (auto) 0 % 06/24/23 08:33 Nucleated RBCs # 0.0 /100WBC 06/24/23 08:33 Sodium 141 mmol/L (136-145) 06/24/23 08:33 Potassium 3.9 mmol/L (3.5-5.1) 06/24/23 08:33 Chloride 106 mmol/L (98-107) 06/24/23 08:33 Carbon Dioxide 25 mmol/L (22-29) 06/24/23 08:33 Anion Gap 13.9 (5-19) 06/24/23 08:33 BUN 7 mg/dL (6-20) 06/24/23 08:33 Creatinine 0.7 mg/dL (0.5-0.9) 06/24/23 08:33 GFR Calculation 101.1 mL/min (90-130) 06/24/23 08:33 Glucose 71 mg/dL (65-115) 06/24/23 08:33 Calculated Osmolality 288 mOsm/kg (285-295) 06/24/23 08:33 Calcium 9.2 mg/dL (8.5-10.5) 06/24/23 08:33 Total Bilirubin 0.5 mg/dL (0.15-1.2) 06/24/23 08:33 AST 15 U/L (0-32) 06/24/23 08:33 ALT 10 U/L (0-33) 06/24/23 08:33 Alkaline Phosphatase 51 U/L (35-105) 06/24/23 08:33 Total Protein 7.2 g/dL (6.6-8.7) 06/24/23 08:33 Albumin 4.4 g/dL (3.5-5.2) 06/24/23 08:33 Globulin 2.8 g/dL (1.3-4.6) 06/24/23 08:33 HCG, Qual Negative (Negative) 06/24/23 08:33 No radiology studies performed this visit Discharge Plan Discharge Patient Disposition: Home Clinical Impression: Blood loss anemia, Microcytic anemia Condition: Stable Prescriptions: New iron 325 mg (65 mg iron) tablet 325 mg PO BID Qty: 60 2RF Colace 100 mg capsule 100 mg PO BID Qty: 60 2RF No Action [place]vel[place] (28) 0.15-0.03 mg tablet 1 tab PO QPM sertraline 50 mg tablet 50 mg PO QPM Discharge Orders: Discharge ED (Routine); Ordered 06/24/23 Ordered By: Mich Fernandes Referrals: Toni Carmen MD [Primary Care Provider] - 2 weeks (Recheck hemoglobin) Patient Instructions: Opioid Safety, Pain Management Activity Restrictions/Additional Instructions: Your hemoglobin is 8.6. Your MCV is low. This generally is due to a combination of blood loss anemia as well as low iron. Please take your iron medication as prescribed. Note that it may cause nausea. It is advisable to take it with food. It is also advisable that you take docusate sodium 1-2 times per day because it may also cause constipation. Make sure you get your hemoglobin rechecked in 2 weeks. If you are continuing to have heavy periods, please talk to your doctor about possible interventions. Return to the emergency department if you are significantly symptomatic with lightheadedness, abnormal blood pressure, elevated heart rate, passing out, etc. Coding Level of Care Code ED [employer] Consultant for Jeffry Finley
--- NOTE | 2023-06-24 07:56 | ECG_ITS ---
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 Measurements Intervals [place] Rate: 64 P: 22 [place]: 144 QRS: 33 QRSD: 106 T: 52 QT: 390 QTc: 405 Interpretive Statements SINUS RHYTHM No previous ECG available for comparison Electronically Signed On 06-24-2023 20:50:13 CDT by Leti Joyce M.D. [id number]
--- NOTE | 2023-06-24 07:59 | PC.PHAR ---
pt states she takes care of her own medications-pt states she is taking the medications entered ext doesnt show what was last filled
[2023-06-24 08:41] LABS: Eosinophils % 0.7 %; Hematocrit 30.1 % (36-47); Lymphocytes # 0.9 10^3/uL (0.8-4.8); Lymphocytes % 21.8 %; Mean Corpuscular HGB Conc 28.6 g/dL (30-55); Mean Corpuscular Hemoglobin 19.4 pg (27-33); Mean Corpuscular Volume 67.9 fl (85-98); Mean Platelet Volume 9.3 fL (7.4-10.4); Monocytes # 0.2 10^3/uL (0.2-0.9); Monocytes % 5.4 %; Neutrophils # 2.86 10^3/uL (1.8-7.7); Neutrophils % 70.9 %; Nucleated Red Blood Cells % 0 %; Platelet Count 259 10^3/cmm (157-399); Red Blood Count 4.43 10^6/uL (3.85-5.65); Red Cell Distribution Width 15.6 % (12.1-15.1); White Blood Count 4.04 10^3/uL (3.29-11.43)
[2023-06-24 09:03] LABS: Alanine Aminotransferase 10 U/L (0-33); Albumin Level 4.4 g/dL (3.5-5.2); Alkaline Phosphatase 51 U/L (35-105); Anion Gap 13.9 (5-19); Aspartate Amino Transferase 15 U/L (0-32); Blood Urea Nitrogen 7 mg/dL (6-20); Calcium 9.2 mg/dL (8.5-10.5); Carbon Dioxide 25 mmol/L (22-29); Chloride 106 mmol/L (98-107); Globulin 2.8 g/dL (1.3-4.6); Glomerular Filtration Rate 101.1 mL/min (90-130); Glucose 71 mg/dL (65-115); Osmolality Calculated 288 mOsm/kg (285-295); Potassium 3.9 mmol/L (3.5-5.1); Sodium 141 mmol/L (136-145); Total Bilirubin 0.5 mg/dL (0.15-1.2); Total Protein 7.2 g/dL (6.6-8.7)
[2023-06-24 09:06] LABS: HCG, Serum Qual Negative (Negative)
[2023-06-24 09:38] VITALS: BP 133/97; PULSE 63; O2SAT 100
== END 2023-06-24 09:40 | disposition home or self-care (01) ==
PROVIDERS: Emergency Provider Emergency Medicine; PCP Family Medicine
DX: D50.0 Iron deficiency anemia secondary to blood loss (chronic) (principal); Z87.891 Personal history of nicotine dependence
CPT/HCPCS: 36415; 80053; 84703; 85025; 93005; 99284

== ENCOUNTER → 2023-07-08 15:50 | Outpatient (BNVA) | payer MEDICAID, SELFPAY | PROVIDERS: PCP Family Medicine; Visit Provider Family Medicine | DX: Z51.81 Encounter for therapeutic drug level monitoring (principal); I10 Essential (primary) hypertension | CPT/HCPCS: 85025 ==

== ENCOUNTER → 2024-03-25 11:05 | Outpatient (BNVA) | payer MEDICAID, SELFPAY | PROVIDERS: PCP Family Medicine; Visit Provider Physician Assistant | DX: M67.431 Ganglion, right wrist (principal) | CPT/HCPCS: 73110 ==

== ENCOUNTER → 2024-04-15 11:32 | Outpatient (BNVA) | payer MEDICAID, SELFPAY | PROVIDERS: PCP Family Medicine; Visit Provider Family Medicine | DX: R10.2 Pelvic and perineal pain (principal) | CPT/HCPCS: 81000; 81025; 87491; 87591 ==

== ENCOUNTER 2024-05-06 12:45 | Outpatient (CLI) | payer OTHER, MEDICAID, SELFPAY ==
--- NOTE | 2024-05-06 12:45 | US_ITS ---
WS: [id number] PELVIC ULTRASOUND REASON FOR VISIT: Pelvic pain TECHNIQUE: Grayscale and Doppler transabdominal and transvaginal pelvic ultrasound. FINDINGS: No free pelvic fluid. Uterus measures 7.2 cm x 6.2 cm x 5.7 cm. The uterus is inhomogeneous in echo character. There is a vague area of inhomogeneous echogenicity in the posterior uterus. Possible uterine fibroid. Endometrial thickness is 7 mm. Right ovary measures 4.0 cm x 2.3 cm x 3.5 cm, and Normal blood flow to the right ovary. Small follicular cysts. There is a dominant simple cyst in the right ovary and measures 1.8 x 2 cm. Left ovary measures 4.5 cm x 3.2 cm x 2.0 cm. Normal blood flow to the left ovary. Small follicular cysts. No left ovarian mass. No other pelvic mass. US/US pelv w/transvag [id number] IMPRESSION: 2 cm right ovarian cyst. Possible uterine fibroid. Follow-up exam in 1 month as clinically warranted.
== END 2024-05-06 12:46 | disposition home or self-care (01) ==
PROVIDERS: PCP Family Medicine; Visit Provider Family Medicine
DX: N83.201 Unspecified ovarian cyst, right side (principal); R10.2 Pelvic and perineal pain
CPT/HCPCS: 76830; 76856

== ENCOUNTER 2024-06-03 06:00 | Outpatient (CLI) | payer OTHER, MEDICAID, SELFPAY | END 2024-06-03 06:01 | disposition home or self-care (01) | PROVIDERS: PCP Family Medicine; Visit Provider Family Medicine | DX: Z34.80 Encounter for supervision of other normal pregnancy, unspecified trimester (principal); Z34.90 Encounter for supervision of normal pregnancy, unspecified, unspecified trimester; R30.0 Dysuria; I10 Essential (primary) hypertension; R10.2 Pelvic and perineal pain | CPT/HCPCS: 80307; 81000; 81025; 84144; 84156; 84443; 84702; 85025; 86592; 86762; 86803; 86850; 86900; 87086; 87340; 87491; 87591; 87624; 87806 ==

== ENCOUNTER → 2024-06-20 09:00 | Outpatient (BNVA) | payer OTHER, MEDICAID, SELFPAY | PROVIDERS: PCP Family Medicine; Visit Provider Family Medicine | DX: Z34.80 Encounter for supervision of other normal pregnancy, unspecified trimester (principal); I10 Essential (primary) hypertension | CPT/HCPCS: 84156 ==

== ENCOUNTER 2024-06-24 10:24 | Outpatient (CLI) | payer OTHER, MEDICAID, SELFPAY ==
--- NOTE | 2024-06-24 11:58 | USR_ITS ---
PROCEDURE INFORMATION: Exam: US First Trimester, Transabdominal Exam date and time: 06/24/2024 10:31 AM Age: 29 years old Clinical indication: Screening exam; Routine US, uterus; Additional info: Dating LABS AND CLINICAL REPORTS: Last menstrual period start date: 04/18/2024 Gestational age (Established): 9 w 4 d Estimated due date (Established): 01/23/2025 TECHNIQUE: Imaging protocol: Real-time transabdominal obstetrical ultrasound of the maternal pelvis and a first trimester , less than 14 weeks 0 days, with image documentation. COMPARISON: No relevant prior studies available. FINDINGS: GESTATION: Gestation: Single, viable intrauterine gestation. Embryonic/ heart rate: 167 bpm Extra-embryonic membranes/Placenta: The placenta is posterior. Amniotic/Chorionic fluid: Amount of amniotic fluid is subjectively normal for this stage of . BIOMETRY: Gestational age (AUA): See [place] rump length (CRL) finding. [place] rump length (CRL): Mean crown-rump length (CRL) is 3.1 cm. This corresponds to an estimated gestational age (EGA) of 10 weeks 1 day. MATERNAL: Uterus: The uterus measures 10.6 x 6.3 x 9.4 cm. Cervix: Unremarkable. Endocervical canal is closed. Right ovary/adnexa: The right ovary is mildly enlarged. The right ovary measures 4.5 x 3.4 x 3.5 cm with a volume of 27.3 ml. 2.6 x 2.3 x 23.2 cm corpus luteum cyst in the right ovary. No abnormal right adnexal masses. Left ovary/adnexa: The left ovary is not definitely visualized. No abnormal left adnexal masses. Intraperitoneal space: No free fluid in the pelvis. Vasculature: Normal arterial and venous waveforms on Doppler imaging in the right ovary. US/US OB <= 14 weeks fetus [id number] IMPRESSION: 1. Single, viable intrauterine gestation. Estimated gestational age of 10 weeks 1 day. by ultrasound. Estimated delivery date by ultrasound is 01/19/2025. This is 4 days earlier than the estimated delivery date by the patient's last menstrual period. 2. Mildly enlarged right ovary with a right ovarian corpus luteum cyst. 3. The left ovary is not definitely visualized.
== END 2024-06-24 10:25 | disposition home or self-care (01) ==
LOC: RAD 10:24
PROVIDERS: PCP Family Medicine; Visit Provider Family Medicine
DX: Z34.80 Encounter for supervision of other normal pregnancy, unspecified trimester (principal)
CPT/HCPCS: 76801

== ENCOUNTER → 2024-07-29 09:22 | Outpatient (BNVA) | payer OTHER, MEDICAID, SELFPAY | PROVIDERS: PCP Family Medicine; Visit Provider Family Medicine | DX: Z34.80 Encounter for supervision of other normal pregnancy, unspecified trimester (principal) | CPT/HCPCS: 81511 ==

== ENCOUNTER 2024-09-02 09:56 | Outpatient (CLI) | payer OTHER, MEDICAID, SELFPAY ==
--- NOTE | 2024-09-02 10:00 | USR_ITS ---
PROCEDURE INFORMATION: Exam: US After First Trimester, Transabdominal Exam date and time: 09/02/2024 10:08 AM Age: 29 years old Clinical indication: Screening exam; Routine US, uterus; Additional info: Anatomy US 5 weeks LABS AND CLINICAL REPORTS: Gestational age (Established): 20 w 1 d Estimated due date (Established): 01/19/2025 TECHNIQUE: Imaging protocol: Real-time transabdominal obstetrical ultrasound of the maternal pelvis and a second or third trimester with image documentation. COMPARISON: US OB <= 14 weeks fetus [id number] 06/24/2024 10:31 AM FINDINGS: Gestation: Single, viable intrauterine gestation. heart rate: 124 bpm presentation and position: The fetus is in cephalic presentation. Placenta: The placenta is posterior. Amniotic fluid (Qualitative): Amniotic fluid is subjectively normal for gestational age. Amniotic fluid index: Not listed. ANATOMY: midline falx: Unremarkable. cerebellum: Unremarkable. lateral ventricles: Unremarkable. cisterna magna: Unremarkable. choroid plexus: Unremarkable. face: Unremarkable. aortic arch: Unremarkable. heart four-chamber view, heart size and position: Unremarkable. heart right ventricular outflow tract: Unremarkable. heart left ventricular outflow tract: Unremarkable. diaphragm: The diaphragm is intact as visualized. kidneys: Unremarkable. stomach: Unremarkable. urinary bladder: Unremarkable. spine: Unremarkable. Umbilical cord and insertion: There is a three-vessel umbilical cord. Insertion into the abdomen is unremarkable. upper limbs: Unremarkable as visualized. lower limbs: Unremarkable as visualized. external genitalia: Presumptive female genitalia. No gross abnormality. BIOMETRY: Gestational age (AUA): 19 weeks 5 days. Estimated due date (AUA): 01/22/2025 Estimated weight: 315.4 g. EFW by AC, BPD, FL, HC, [place] 1985 Biparietal diameter (BPD): 4.34 cm. EGA (BPD) is 19 w 1 d. 12.9 % percentile Head circumference (HC): 17.59 cm. EGA (HC) is 20 w 1 d. 39.3 % percentile Abdominal circumference (AC): 14.48 cm. EGA (AC) is 19 w 6 d. 32.7 % percentile Femur length (FL): 3.17 cm. EGA (FL) is 19 w 6 d. 31.8 % percentile HC/AC: 1.21. (Normal range: 1.08 - 1.26) FL/HC: 18.02. (Normal range: 16.6 - 19.37) FL/BPD: 73.04 FL/AC: 21.89 MATERNAL: Uterus: Unremarkable. Cervix: The cervix is unremarkable. There is no shortening or effacement. The cervix measures 5.3 cm using a transabdominal measurement. Right ovary/adnexa: Obscured by lack of adequate acoustic window. Left ovary/adnexa: Obscured by lack of adequate acoustic window. Intraperitoneal space: No ascites. US/US OB >= 14 weeks fetus [id number] IMPRESSION: 1. Single, viable intrauterine gestation. Estimated gestational age of 19 weeks 5 days by ultrasound. Estimated delivery date by ultrasound is 01/22/2025. 2. Unremarkable anatomic survey.
== END 2024-09-02 09:57 | disposition home or self-care (01) ==
LOC: RAD 09:57
PROVIDERS: PCP Family Medicine; Visit Provider Family Medicine
DX: Z34.82 Encounter for supervision of other normal pregnancy, second trimester (principal)
CPT/HCPCS: 76805

== ENCOUNTER → 2024-09-30 09:16 | Outpatient (BNVA) | payer OTHER, MEDICAID, SELFPAY | PROVIDERS: PCP Family Medicine; Visit Provider Family Medicine | DX: Z34.80 Encounter for supervision of other normal pregnancy, unspecified trimester (principal) | CPT/HCPCS: 82950 ==

== ENCOUNTER 2024-10-04 08:05 | Outpatient (CLI) | payer OTHER, MEDICAID, SELFPAY ==
[2024-10-04 08:05] VITALS: BMI 31.3
[2024-10-04 08:21] VITALS: BP 121/69; PULSE 90; TEMP 35.9
[2024-10-04 08:41] VITALS: BP 123/62; PULSE 84
[2024-10-04 08:58] VITALS: BP 123/62; PULSE 84; O2SAT 98
== END 2024-10-04 08:58 | disposition home or self-care (01) ==
LOC: OPOB 08:06 → OBGYN 08:06
PROVIDERS: PCP Family Medicine; Visit Provider Family Medicine
DX: O36.8190 Decreased fetal movements, unspecified trimester, not applicable or unspecified (principal); Z3A.00 Weeks of gestation of pregnancy not specified
CPT/HCPCS: 99211

== ENCOUNTER → 2024-10-26 10:26 | Outpatient (BNVA) | payer OTHER, MEDICAID, SELFPAY | PROVIDERS: PCP Family Medicine; Visit Provider Family Medicine | DX: R30.0 Dysuria (principal) | CPT/HCPCS: 81000; 87086 ==

== ENCOUNTER 2024-11-21 06:25 | Outpatient (CLI) | payer OTHER, MEDICAID, SELFPAY ==
[2024-11-21] VITALS (11 sets, daily range): BP systolic 116–130; BP diastolic 58–70; PULSE 78–104; RESP 15; TEMP 35.8; BMI 32.6
[2024-11-21 07:38] LABS: Bilirubin Urine Negative (Negative); Blood Urine Negative (Negative); Glucose Urine UA Negative (Normal); Ketones Urine Negative (Negative); Leukocyte Esterase Urine Trace (Negative); Nitrate Urine Negative (Negative); Protein Urine Negative (Negative); Specific Gravity, Urine 1.016 (1.005-1.030); Urine Appearance Clear (CLEAR); Urine Color Yellow (Yellow)
[2024-11-21 07:54] LABS: UA Manual Slide Review YES
[2024-11-21 07:58] LABS: Add Urine Culture? No; Bacteria Urine 1+ /hpf; Mucus Urine 1+ /hpf; RBC Urine RARE /hpf (0-2); Squamous Epithelial Cell Urine 15-25 /hpf (0-5); WBC Urine 0-4 /hpf (0-5)
== END 2024-11-21 08:30 | disposition home or self-care (01) ==
LOC: OPOB 06:28 → OBGYN 06:29
PROVIDERS: PCP Family Medicine; Visit Provider Family Medicine
DX: O26.899 Other specified pregnancy related conditions, unspecified trimester (principal); Z3A.00 Weeks of gestation of pregnancy not specified; R10.9 Unspecified abdominal pain; R10.2 Pelvic and perineal pain
CPT/HCPCS: 59025; 81001; 99211

== ENCOUNTER → 2024-11-23 13:20 | Outpatient (BNVA) | payer OTHER, MEDICAID, SELFPAY | PROVIDERS: PCP Family Medicine; Visit Provider Family Medicine | DX: R10.2 Pelvic and perineal pain (principal); Z51.81 Encounter for therapeutic drug level monitoring | CPT/HCPCS: 81000; 85025 ==

== ENCOUNTER → 2024-12-23 08:36 | Outpatient (BNVA) | payer OTHER, MEDICAID, SELFPAY | PROVIDERS: PCP Family Medicine; Visit Provider Family Medicine | DX: Z34.90 Encounter for supervision of normal pregnancy, unspecified, unspecified trimester (principal) | CPT/HCPCS: 87081 ==

== ENCOUNTER 2024-12-27 15:23 | Outpatient (CLI) | payer OTHER, MEDICAID, SELFPAY ==
--- NOTE | 2024-12-27 15:30 | USR_ITS ---
PROCEDURE INFORMATION: Exam: US , Limited Exam date and time: 12/27/2024 3:31 PM Age: 29 years old Clinical indication: Screening exam; Routine US, uterus; Additional info: Concern for non-vertex lie, please check head position and bob - within the next 3-4 LABS AND CLINICAL REPORTS: Gestational age (Established): 36 w 5 d Estimated due date (Established): 01/19/2025 TECHNIQUE: Imaging protocol: Real-time ultrasound of the maternal uterus with image documentation. Exam focused on the clinical indication. COMPARISON: US OB >= 14 weeks fetus [id number] 09/02/2024 10:08 AM FINDINGS: Gestation: Intrauterine gestation. heart rate: 113 bpm presentation and position: Cephalic. Placenta: Posterior. Amniotic fluid index: BOB is 10.68 cm. US/US OB limited [id number] IMPRESSION: Unremarkable limited ultrasound.
== END 2024-12-27 15:24 | disposition home or self-care (01) ==
PROVIDERS: PCP Family Medicine; Visit Provider Family Medicine
DX: O32.2XX0 Maternal care for transverse and oblique lie, not applicable or unspecified (principal); Z3A.36 36 weeks gestation of pregnancy
CPT/HCPCS: 76815

== ENCOUNTER 2025-01-02 17:50 | Outpatient (CLI) | payer OTHER, MEDICAID, SELFPAY ==
[2025-01-02 17:50] VITALS: BMI 34.9
[2025-01-02 18:05] VITALS: BP 138/91; PULSE 99
[2025-01-02 18:20] VITALS: BP 136/65; PULSE 82
[2025-01-02 19:51] VITALS: BP 128/73; PULSE 88
[2025-01-02 20:03] VITALS: BP 122/67; PULSE 100
== END 2025-01-02 20:21 | disposition home or self-care (01) ==
LOC: OPOB 17:53 → OBGYN 17:54
PROVIDERS: PCP Family Medicine; Visit Provider Family Medicine
DX: O26.899 Other specified pregnancy related conditions, unspecified trimester (principal); Z3A.00 Weeks of gestation of pregnancy not specified; R10.9 Unspecified abdominal pain
CPT/HCPCS: 59025; 99211

== ENCOUNTER → 2025-01-06 08:24 | Outpatient (BNVA) | payer OTHER, MEDICAID, SELFPAY | PROVIDERS: PCP Family Medicine; Visit Provider Family Medicine | DX: R03.0 Elevated blood-pressure reading, without diagnosis of hypertension (principal); Z34.80 Encounter for supervision of other normal pregnancy, unspecified trimester; Z51.81 Encounter for therapeutic drug level monitoring | CPT/HCPCS: 80053; 82570; 84156; 84550; 85025 ==

== ENCOUNTER 2025-01-16 17:56 | Inpatient (IN) | payer OTHER, MEDICAID, SELFPAY ==
[2025-01-16] VITALS (14 sets, daily range): BP systolic 126–140; BP diastolic 61–93; PULSE 75–97; RESP 16; BMI 34.2
[2025-01-16 18:55] LABS: Basophils % 0.1 %; Eosinophils % 0.1 %; Hematocrit 32.3 % (36-47); Lymphocytes # 1.7 10^3/uL (0.8-4.8); Lymphocytes % 18.4 %; Mean Corpuscular HGB Conc 30.3 g/dL (30-55); Mean Corpuscular Hemoglobin 22.6 pg (27-33); Mean Corpuscular Volume 74.4 fl (85-98); Mean Platelet Volume 11.7 fL (7.4-10.4); Monocytes # 0.5 10^3/uL (0.2-0.9); Monocytes % 5.5 %; Neutrophils # 6.88 10^3/uL (1.8-7.7); Neutrophils % 75.1 %; Nucleated Red Blood Cells % 0 %; Platelet Count 216 10^3/cmm (157-399); Red Blood Count 4.34 10^6/uL (3.85-5.65); Red Cell Distribution Width 15.7 % (12.1-15.1); White Blood Count 9.15 10^3/uL (3.29-11.43)
[2025-01-16 19:30] LABS: Slide Review Slide Review Perform
[2025-01-16] MEDS: miSOPROStol 100 mcg tablet 25 MCG VAGINAL (19:40)
--- NOTE | 2025-01-16 20:35 | P.HP_ITS ---
Providers/Chief Complaint 2 Admitting Physician: Toni Carmen MD Primary Care Provider: Toni Carmen MD Chief Complaint: induction of labor History of Present Illness Michelle Foreman is a 29 year old @ 39.4 weeks by LMP c/w 10 wk US. Preg c/b h/o preeclampsia, h/o depression, h/o cHTN, anemia. The patient presented to labor and delivery for an elective scheduled induction of labor on the evening of 01/16/2025. The patient has been feeling well. She denies any chest pains, shortness of breath, nausea, vomiting, diarrhea, constipation, dysuria, leakage fluid, vaginal bleeding, fever. Her initial cervical exam was 2 cm dilated with 50% effacement. Contractions have not been graphed and heart tones are in the mid 130s with moderate variability good accelerations with category 1 tracing. Medications/Allergies Home Medications ?Medication ?Instructions ?Recorded ?Confirmed ?Last Taken ?Type vitamin with calcium 1 tab PO DAILY 06/03/24 01/16/25 01/02/25 History no.72-iron 27 mg-folic acid 1 mg tablet sertraline 25 mg tablet 25 mg PO DAILY #30 tabs 12/03/2101/16/25 01/02/25 Rx ferrous sulfate 325 mg (65 mg 325 mg PO DAILY #30 tabs 11/28/24 01/16/25 01/02/25 Rx iron) tablet Allergies Allergy/AdvReac Type Severity Reaction Status Date / Time No Known Allergies Allergy Verified 01/12/25 08:24 PFSH Acute 2 PFSH: Medical History Preeclampsia Surgical History H/O hand surgery right 5th metacarpal pin for fracture Family History Father Hypertension Diabetes Grandfather Hypertension Diabetes Social History Smoking and tobacco/nicotine status: never used tobacco/nicotine Quit status (tobacco/nicotine): has quit using Alcohol intake: never Substance/Drug Use: former Date of last use: Quit during early using THC Female Reproductive History: : 4 Vitals/I&O/Wt Last Vital Signs Pulse 82 01/16/25 20:23 Resp 16 01/16/25 18:46 BP 135/64 01/16/25 20:23 O2 Del Method Room Air 01/16/25 18:03 Weight last 48 hrs Weight 219 lb Physical Exam 2 Narrative: General: Alert and oriented x3 Eyes: Pupils equal round and reactive to light and accommodation Mouth: Mucous membranes moist, pharynx non-erythematous Cardiac: Regular rate and rhythm without murmurs Lungs: Clear to auscultation bilaterally without wheezes, crackles or rhonchi Abdomen: Soft, non-tender, fundus consistent with gestational age Extremities: Trace edema in the bilateral lower extremities Data 01/16/25 18:20 A&P Assessment and plan (1) Supervision of normal intrauterine in multigravida: The patient is doing well overall at this time. We will proceed with routine intrapartum management. She has been given 1 dose of Cytotec and will receive up to 3 doses if needed. Currently contractions are every 5 to 10 minutes and she has a category 1 tracing with heart tones in the mid 130s. The patient is GBS negative. She plans to go without an epidural. She may have fentanyl per protocol for pain. She is aware that she will not be able to get it towards the end of the delivery process. The patient and her significant other are in agreement with current plan of care. All questions were answered. Proceed with routine intrapartum management. (2) Anemia: PDMP PDMP Reviewed: Not Reviewed Attestations 2 Medical Necessity Statement*: The patient will be here for greater than 2 midnights due to routine intrapartum and management of labor and delivery. Coding Level of Care Code Acute Code for Chg Fwd Diagnoses Supervision of normal intrauterine in multigravida Z34.80 Anemia D64.9
[2025-01-16] MEDS: calcium carbonate 500 mg Chew Tablet 1000 MG PO (23:57)
[2025-01-17] VITALS (46 sets, daily range): BP systolic 112–148; BP diastolic 57–111; PULSE 65–88; RESP 15–16; TEMP 36.1–36.8; O2SAT 97–100
[2025-01-17] MEDS: dextrose 5%-lactated ringers 1,000 ML 125 ML IV ×2 (04:48→13:52)
[2025-01-17] MEDS: oxytocin 30 UNIT/500 ML BAG IV (04:49)
[2025-01-17] MEDS: calcium carbonate 500 mg Chew Tablet 1000 MG PO (11:10)
[2025-01-17] MEDS: fentaNYL 50 mcg/mL INJ 2mL IVP (18:04)
--- NOTE | 2025-01-17 20:07 | P.PCNOB_ITS ---
Delivery Note: Date of delivery: January 17, 2025 Pre-delivery diagnoses: 1. Intrauterine at 39.5 weeks gestation 2. Anemia Post-delivery diagnoses: 1. Intrauterine status post s pontaneous vaginal delivery at 39.5 weeks gestation 2. Anemia 3. Delivery of healthy infant female we ighing 8 pounds 0 ounces with Apgars of 8 and 9 Procedure: Spontaneous vaginal delivery Delivering Physician: Toni Carmne MD Estimated blood loss (mL): 100 Pre-Delivery Course: Michelle Foreman is a 29 year old G4 now P3 status post spontaneous vaginal delivery @ 39.5 weeks by LMP c/w 10 wk US. Preg c/b h/o preeclampsia, h/o depression, h/o cHTN, anemia. The patient presented to labor and delivery for an elective scheduled induction of labor on the evening of 01/16/2025. The patient was feeling well. She denied any chest pains, shortness of breath, nausea, vomiting, diarrhea, constipation, dysuria, leakage fluid, vaginal bleeding, fever. Her initial cervical exam was 2 cm dilation with 50% effacement. She was given 1 dose of Cytotec and began to have regular contractions every 1 to 3 minutes. She did not feel them very well, but because of the frequency it was not felt safe to proceed with further doses. She was allowed to have these contractions overnight and started IV Pitocin in the morning. We gradually increase the Pitocin and the patient had changed to 5 cm dilation by late afternoon on 01/17/2025. She was progressing rather slowly and the infant's head was well applied to the cervix, so AROM was performed at 1710 on 01/17/2025. Clear fluid was noted. The patient then began to make more rapid change and was complete by 1935 on 01/17/2025. The patient did not have an epidural and had extremely good control throughout the entire labor process. Delivery: The patient began pushing at 1935 on 01/17/2025. The patient pushed well and the distended rapidly. The 's head delivered in the OA position at 1 939 on 01/17/2025. 2 nuchal cords were present. 1 was reduced prior to delivery of the . At that point the patient could not hold the in a longer. And the body of the rapidly delivered. The right shoulder was the anterior shoulder. There was no dystocia. The infant was vigorous upon delivery. The infant's mouth and nose were bulb suction by myself and she was crying immediately after delivery. The infant was placed on the mother's chest where the nurses were awaiting to care for her. The cord was clamped by myself after approximately 2 minutes and cut by the 's father. Cord blood was obtained. The cord was drained of blood and traction was placed on the umbilical cord. The placenta delivered without complication at 1947 on 01/17/2025. The placenta was noted to be intact with a central umbilical cord insertion site. The uterus was massaged and the patient's bleeding was slowed. The cervix was inspected and no lacerations were noted. The vaginal wall was inspected and a small first-degree periurethral laceration was noted. A small perineal laceration was also noted that was first-degree as well. Neither needed suturing. Estimated blood loss was 100 mL. Currently both the mother and infant are doing well. History History History 4 Term 2 0 Miscarriages/Ectopic 1 Living Children 2 Past Pregnancies Del. Date GA/Weeks Outcome Route Wt Inf Gender Labor Lgth Comp. Anesth esia Location 09/28/17 6 spontaneous 01/31/21 37 live - full term Vaginal 7 lb 8 oz Male 36 [facility] [place] 10/23/22 39 live - full term Vaginal 7 lb 5 oz Male 25 hrs [facility] [place] 01/17/25 39 live - full term Vaginal 8 lb Female 24 hr [facility] [place] Delivery Date: 09/28/17 Last Updated by: Toni Carmen MD Miscarriage ~6-7 weeks Delivery Date: 01/31/21 Last Updated by: Toni Carmen MD Severe Preeclampsia - induced, Mag, late transfer of care, smoking in 1st TM. Delivery Date: 10/23/22 Last Updated by: Toni Carmen MD Heavy bleeding - Cytotec/TXA given, cHTN on labetalol, Stadol - no epidural. Delivery Date: 01/17/25 Last Updated by: Toni Carmen MD No epidural. Quick delivery once patient got to 7 cm. A&P Assessment and plan (1) Spontaneous vaginal delivery: (2) Anemia: PDMP PDMP Reviewed: Not Reviewed Coding Level of Care Code Acute Code for Chg Fwd Diagnoses Spontaneous vaginal delivery O80 Anemia D64.9
[2025-01-17] MEDS: ibuprofen 800 mg tablet PO (21:47)
[2025-01-17] MEDS: benzocaine-menthol 78 gm Canister 1 SPRAY TOPICAL (21:47)
[2025-01-17] MEDS: lanolin oint 7 gm 1 APPLIC TOPICAL (21:47)
[2025-01-18 00:30] VITALS: BP 131/77; PULSE 89; RESP 16; O2SAT 98
[2025-01-18 01:30] VITALS: BP 121/68; PULSE 79; RESP 16; TEMP 36.7; O2SAT 98
[2025-01-18] MEDS: calcium carbonate 500 mg Chew Tablet 1000 MG PO (03:59)
[2025-01-18] MEDS: ibuprofen 800 mg tablet PO ×3 (08:22→20:44)
[2025-01-18] MEDS: docusate sodium 100 mg Capsule PO ×2 (08:22→18:19)
[2025-01-18] MEDS: PRENATAL VIT NO.130/IRON/FOLIC 1 EACH TABLET PO (08:22)
[2025-01-18 08:45] LABS: Hematocrit 29.8 % (36-47); Mean Corpuscular HGB Conc 29.9 g/dL (30-55); Mean Corpuscular Hemoglobin 22.6 pg (27-33); Mean Corpuscular Volume 75.6 fl (85-98); Mean Platelet Volume 10.9 fL (7.4-10.4); Platelet Count 184 10^3/cmm (157-399); Red Blood Count 3.94 10^6/uL (3.85-5.65); White Blood Count 10.26 10^3/uL (3.29-11.43)
[2025-01-18 09:45] VITALS: BP 121/77; PULSE 78; RESP 18; TEMP 36.7; O2SAT 99
[2025-01-18 13:30] VITALS: BP 122/71; PULSE 78; RESP 16; TEMP 36.7; O2SAT 98
--- NOTE | 2025-01-18 16:01 | P.PN_ITS ---
Subjective 2 Subjective: The patient is doing well overall at this time. Her bleeding has been decreasing well. She is ambulating, voiding, passing gas and tolerating food by mouth. Her pain is currently well-controlled. She has been breast-feeding and this has been going well. Vitals/I&O/Wt Last Vital Signs Temp 98.0 F 01/18/25 13:30 Pulse 78 01/18/25 13:30 Resp 16 01/18/25 13:30 BP 122/71 01/18/25 13:30 Pulse Ox 98 01/18/25 13:30 O2 Del Method Room Air 01/18/25 13:30 Weight last 48 hrs Weight 219 lb Physical Exam 2 Narrative: General: Alert and oriented x3 Cardiac: Regular rate and rhythm without murmurs Lungs: Clear to auscultation bilaterally without wheezes, crackles or rhonchi Abdomen: Soft, mild tenderness over uterus. The uterus is firm and 2 cm below the umbilicus. Extremities: Trace edema in the bilateral lower extremities Data 01/18/25 08:20 A&P Assessment and plan (1) Spontaneous vaginal delivery: The patient is doing well overall at this time. We will plan to proceed with routine care. She does have anemia and we will get her iron restarted. The patient also has a history of depression and had stopped the sertraline about a week and a half before delivery to decrease risk for complications. She will plan to get this restarted. Routine discharge instructions were discussed. We will plan to discharge home tomorrow morning as long as things continue to go well. PDMP PDMP Reviewed: Not Reviewed Attestations 2 Medical Necessity Statement*: The patient will be here for greater than 2 midnights due to routine intrapartum and management of labor and delivery. Coding Level of Care Code Acute Code for Chg Fwd Diagnoses Spontaneous vaginal delivery O80
[2025-01-18 16:07] VITALS: BP 128/78; PULSE 79; RESP 16; TEMP 36.7; O2SAT 98
[2025-01-18] MEDS: ferrous sulfate EC 325 mg Tablet PO (18:19)
[2025-01-18 20:44] VITALS: BP 124/78; PULSE 76; RESP 16; TEMP 36.9; O2SAT 99
[2025-01-19 05:07] VITALS: BP 135/86; PULSE 74; RESP 16; TEMP 36.6; O2SAT 98
--- NOTE | 2025-01-19 07:31 | P.DS_ITS ---
Discharge Providers Date of Admission: 01/16/25 17:56 Date of Discharge: January 19, 2025 Attending Provider at Admission: Toni Carmen MD Attending Provider at Discharge: Toni Carmen MD Primary Care Provider: Toni Carmen MD Diagnoses at Discharge Discharge Diagnosis (1) Spontaneous vaginal delivery: Status: Acute Other Information Additional DC diagnoses/information: 1. Intrauterine status post spontaneous vaginal delivery at 39.5 weeks gestation 2. Anemia 3. Delivery of healthy infant female weighing 8 pounds 0 ounces with Apgars of 8 and 9 Reason for Visit Reason for Visit: induction of labor Brief History: Michelle Foreman is a 29 year old G4 now P3 status post spontaneous vaginal delivery @ 39.5 weeks by LMP c/w 10 wk US. Preg c/b h/o preeclampsia, h/o depression, h/o cHTN, anemia. The patient presented to labor and delivery for an elective scheduled induction of labor on the evening of 01/16/2025. The patient was feeling well. She denied any chest pains, shortness of breath, nausea, vomiting, diarrhea, constipation, dysuria, leakage fluid, vaginal bleeding, fever. Hospital Course Hospital Course Her initial cervical exam was 2 cm dilation with 50% effacement. She was given 1 dose of Cytotec and began to have regular contractions every 1 to 3 minutes. Eventually IV Pitocin was started overnight and she progressed steadily. She had no complications during the labor process. She did not receive an epidural. The patient delivered a healthy female at 1939 on 01/17/2025. She did not need any stitches. Her bleeding was mild. , the patient has done very well without any complications. She is ambulating, voiding, passing gas and tolerating food by mouth. Routine discharge instructions were discussed as well as care. The patient will plan to follow-up with me at 6 weeks . The patient and her significant other are in agreement with current plan of care. All questions were answered. Physical Exam Narrative: General: Alert and oriented x3 Cardiac: Regular rate and rhythm without murmurs Lungs: Clear to auscultation bilaterally without wheezes, crackles or rhonchi Abdomen: Soft, mild tenderness over uterus. The uterus is firm and 2 cm below the umbilicus. Extremities: Trace edema in the bilateral lower extremities Discharge Data Studies Completed and Pending Laboratory Results WBC 10.26 10^3/uL (3.29-11.43) 01/18/25 08:20 RBC 3.94 10^6/uL (3.85-5.65) 01/18/25 08:20 Hgb 8.90 g/dL (11.27-16.99) L 01/18/25 08:20 Hct 29.8 % (36-47) L 01/18/25 08:20 MCV 75.6 fl (85-98) L 01/18/25 08:20 MCH 22.6 pg (27-33) L 01/18/25 08:20 MCHC 29.9 g/dL (30-55) L 01/18/25 08:20 RDW 16.0 % (12.1-15.1) H 01/18/25 08:20 Plt Count 184 10^3/cmm (157-399) 01/18/25 08:20 MPV 10.9 fL (7.4-10.4) H 01/18/25 08:20 Neut % (Auto) 75.1 % 01/16/25 18:20 Lymph % (Auto) 18.4 % 01/16/25 18:20 [place] % (Auto) 5.5 % 01/16/25 18:20 Eos % (Auto) 0.1 % 01/16/25 18:20 Baso % (Auto) 0.1 % 01/16/25 18:20 Neut # (Auto) 6.88 10^3/uL (1.8-7.7) 01/16/25 18:20 Lymph # (Auto) 1.7 10^3/uL (0.8-4.8) 01/16/25 18:20 [place] # (Auto) 0.5 10^3/uL (0.2-0.9) 01/16/25 18:20 Eos # (Auto) 0.0 10^3/uL (0.0-0.8) 01/16/25 18:20 Baso # (Auto) 0.0 10^3/uL (0.0-0.1) 01/16/25 18:20 Nucleated RBC % (auto) 0 % 01/16/25 18:20 Nucleated RBCs # 0.0 /100WBC 01/16/25 18:20 Blood Type B Positive 01/16/25 18:20 Rho(D) Type Rh positive 01/16/25 18:20 Antibody Screen Negative 01/16/25 18:20 Vitals Last Vital Signs Temp 97.9 F 01/19/25 05:07 Pulse 74 01/19/25 05:07 Resp 16 01/19/25 05:07 BP 135/86 01/19/25 05:07 Pulse Ox 98 01/19/25 05:07 O2 Del Method Room Air 01/19/25 05:07 Discharge Plan Discharge Patient Disposition: Home Condition: Good Prescriptions: New ibuprofen 800 mg Tablet 800 mg PO TID Qty: 60 0RF Continued PNV,calcium [id number] acid 27 mg iron- 1 mg tablet 1 tab PO DAILY sertraline 25 mg tablet 25 mg PO DAILY Qty: 30 6RF Changed ferrous sulfate 325 mg (65 mg iron) tablet 325 mg PO BIDWMEAL Qty: 60 3RF Discharge Orders: Discharge Order (Routine); Ordered 01/19/25 Ordered By: Toni Carmen Referrals: Toni Carmen MD [Primary Care Provider] - 03/01/25 10:20 am Discharge Diet: Regular Discharge Activity: Increase activity as tolerated and Limit activity as instructed Patient Instructions: Depression (DC), Opioid Safety (DC), Preeclampsia and Eclampsia After Delivery (GEN), Hemorrhage (DC), OB Discharge Report, OB Food/Drug Interaction Guide, Opioid Safety, OB [facility], OB Vaginal Deliveries, Abnormal Bleeding Activity Restrictions/Additional Instructions: Nothing per vagina for 6 weeks. Showers are recommended instead of baths for the first 6 weeks. Discharge Attestations Time Spent in Discharge Care*: greater than 30 min Quality Metrics Clinical Quality Measures [ No reported AMI, CVA or VTE this stay] Coding Level of Care Code Acute Code for Chg Fwd Diagnoses Spontaneous vaginal delivery O80
[2025-01-19] MEDS: PRENATAL VIT NO.130/IRON/FOLIC 1 EACH TABLET PO (08:24)
[2025-01-19] MEDS: ibuprofen 800 mg tablet PO (08:24)
[2025-01-19 08:25] VITALS: BP 117/65; PULSE 77; RESP 15; TEMP 36.6; TEMP 36.7; O2SAT 99
[2025-01-19] MEDS: docusate sodium 100 mg Capsule PO (08:25)
[2025-01-19 09:00] VITALS: BP 117/65; PULSE 77; RESP 15; TEMP 36.6; O2SAT 99
== END 2025-01-19 09:15 | disposition home or self-care (01) | DRG 807 ==
LOC: OPOB 17:58 → OBGYN 17:58
PROVIDERS: Admitting Provider Family Medicine; PCP Family Medicine; Visit Provider Family Medicine
DX: O99.02 Anemia complicating childbirth (principal); Z37.0 Single live birth; D64.9 Anemia, unspecified; O69.81X0 Labor and delivery complicated by cord around neck, without compression, not applicable or unspecified; Z3A.39 39 weeks gestation of pregnancy
CPT/HCPCS: 36415; 59025; 59409; 85025; 85027; 86850; 86900; 96374; J2590; J3010; J7121; J9999